=== PATIENT | male | born 1935 | race Caucasian/White ===

== ENCOUNTER 2022-11-28 11:21 | Emergency (ER) | payer MEDICARE, BC, SELFPAY ==
[2022-11-28 11:28] VITALS: BP 165/80; PULSE 82; RESP 19; TEMP 36.3; O2SAT 96; BMI 32.8
--- NOTE | 2022-11-28 11:35 | DI.RAD.S_ITS ---
PROCEDURE: XR HAND RT MIN 3V INDICATIONS: fall on thinners, swelling ecchymosis TECHNIQUE: 3 views of the hand(s) acquired. COMPARISON: None. FINDINGS: Bones: No fractures or dislocations. Carpal bones are normally aligned. No suspicious bony lesions. The bones are demineralized. Degenerative changes of the 2nd and 3rd metacarpophalangeal joints. Degenerative changes of the triscaphe joint. Soft tissues: No suspicious soft tissue calcifications. IMPRESSION: 1. No acute bony abnormality. 2. Degenerative changes. Dictated by: Gt Ulloa M.D. on 11/28/2022 at 11:39 Approved by: Gt Ulloa M.D. on 11/28/2022 at 11:41
--- NOTE | 2022-11-28 11:36 | DI.RAD.S_ITS ---
PROCEDURE: XR RIBS RT MIN 3V W CXR 1V INDICATIONS: injury to right ribs . on thinners. TECHNIQUE: 2 views of the right ribs were acquired, along with a single view chest. COMPARISON: None. FINDINGS: Surgical changes and devices: None. Bones and chest wall: No fractures or dislocations. No suspicious bony lesions. Overlying soft tissues appear unremarkable. Lungs and pleura: There is a small right pleural effusion. Mediastinum: Mediastinal contours appear normal. Heart size is enlarged. IMPRESSION: No rib fracture is identified, however visualization of the lower ribs is limited. Additionally right pleural effusion could be a hemothorax. Given history of trauma, recommend CT of the chest. Dictated by: Gt Ulloa M.D. on 11/28/2022 at 11:37 Approved by: Gt Ulloa M.D. on 11/28/2022 at 11:39
--- NOTE | 2022-11-28 11:39 | DI.CT.S_ITS ---
PROCEDURE: CT HEAD/BRAIN WO CON INDICATIONS: fall/hit head and wrists and chest TECHNIQUE: Noncontrast 4.5 mm thick angled axial sections acquired from the foramen magnum to the vertex, with coronal and sagittal reformats. For radiation dose reduction, the following was used: automated exposure control, adjustment of mA and/or kV according to patient size. COMPARISON: None. FINDINGS: Image quality: Excellent. CSF spaces: Basal cisterns are patent. No extra-axial fluid collections. The ventricles are symmetric in size and shape. Brain: No intracranial bleeds or masses. There is cerebral volume loss for age, with resultant ventricular and sulcal prominence. There are periventricular and deep white matter chronic small vessel ischemic changes. There is intracranial internal carotid artery atherosclerosis. Skull and face: Calvarium and visualized facial bones appear intact, without suspicious lesions. Sinuses: Visualized sinuses and mastoids are clear. IMPRESSION: No acute intracranial abnormality. Dictated by: Gt Ulloa M.D. on 11/28/2022 at 11:43 Approved by: Gt Ulloa M.D. on 11/28/2022 at 11:47
--- NOTE | 2022-11-28 11:39 | DI.CT.S_ITS ---
PROCEDURE: CT CERVICAL SPINE WO CON INDICATIONS: fall/hit head and wrists and chest TECHNIQUE: Noncontrast 3 mm thick sections acquired from the skull base to the T4 level. Sagittal and coronal reformats were then constructed. For radiation dose reduction, the following was used: automated exposure control, adjustment of mA and/or kV according to patient size. COMPARISON: None. FINDINGS: Image quality: Excellent. Bones: No fractures or dislocations. Visualized superior ribs are intact. Degenerative changes of the cervical spine. Soft tissues: Prevertebral soft tissues are normal in thickness. No paravertebral hematomas. No apical pneumothoraces. IMPRESSION: No acute traumatic abnormality of the cervical spine. Dictated by: Gt Ulloa M.D. on 11/28/2022 at 11:41 Approved by: Gt Ulloa M.D. on 11/28/2022 at 11:43
--- NOTE | 2022-11-28 12:26 | PC.NURSE ---
Pt states he fell as a result of trip/slip yesterday at [employer]. Immediately ambulatory after fall. Pt finished shopping, drove himself to errands and drove out to [place] to see family. Awoke this am with R-wrist and R-rib pain. Denies other complaints. Pt has new onset a-fib, started eloquis 5 days ago. Denies feeling lightheaded, dizzy prior to fall. Denies N/V/D. Denies SOB. AOx4.
[2022-11-28 12:32] VITALS: BP 122/85; PULSE 85; O2SAT 93
--- NOTE | 2022-11-28 12:39 | ED_ITS ---
HPI - Fall General Chief Complaint: Trauma Stated Complaint: Fall, hit R wrist/ribs Time Seen by Provider: 11/28/22 11:46 Source: patient Mode of arrival: Family Vehicle History of Present Illness HPI Narrative: Patient 67-year-old male with new diagnosis of atrial flutter started on Eliquis a few days ago presenting today after a mechanical trip and fall. He reports that he was at the grocery store yesterday tripped on the curb fell forward and on his right side. Mostly complaining of right hand and wrist pain. Did not hit his head or lose consciousness. He was able to get himself up continue his shopping he injured his glasses he went got his glasses fixed and then went home. This morning he woke up and his hand was more swollen and bruised. He denies any other injury he has been up and walking. No nausea vomiting no other injuries. Related Data Previous Rx's Medication Instructions Recorded hydrocodone 5 mg-acetaminophen 325 1 tab PO Q6H PRN pain #10 tabs 11/28/22 mg tablet Allergies Allergy/AdvReac Type Severity Reaction Status Date / Time acetaminophen [From Tylenol] AdvReac Weakness Verified 11/28/22 11:35 Patient History Social History Smoking Status: Former smoker Smoking Status: Former smoker tobacco type: cigarettes Substance Use Type: does not use Exam Initial Vital Signs Initial Vital Signs: Vital Signs Temperature 97.4 F L 11/28/22 11:28 Pulse Rate 82 11/28/22 11:28 Respiratory Rate 19 11/28/22 11:28 Blood Pressure 165/80 H 11/28/22 11:28 Pulse Oximetry 96 11/28/22 11:28 Oxygen Delivery Method Room Air 11/28/22 11:28 GENERAL: Alert 67-year-old male and in no acute distress. HEENT: Head atraumatic,EOMI, pupils reactive, face symmetric, moist mucous membranes NECK: No vertebral tenderness no step-offs CARDIOVASCULAR: Regular rate and rhythm without murmurs, rubs or gallops. RESPIRATORY: Breath sounds equal bilaterally, no wheezes rales or rhonchi. ABDOMEN: Soft, nontender. Normoactive bowel sounds all 4 quadrants. No guarding or rebound. EXTREMITIES: Normal range of motion, no clubbing or edema. Neurovascularly intact Right hand contusion able flex and extend all fingers actually is moving his wrist with flexion and extension no significant elbow pain to supinate and pronate. No other injury no clavicle NEUROLOGICAL: Alert and oriented x4. SKIN: Warm, dry, no laceration, no petechiae, no rashes or lesions. Contusion right hand Course Orders Ordered: ED Orders 11/28/22 11:35 XR hand RT min 3V Stat 11/28/22 11:36 XR ribs RT min 3V w CXR1V Stat 11/28/22 11:39 CT cervical spine wo con Stat CT head/brain wo con Stat Vital Signs Vital signs: Vital Signs - 8 hr 11/28/22 11:28 11/28/22 12:32 11/28/22 12:32 Temperature 97.4 F L Pulse Rate 82 85 Respiratory Rate 19 Blood Pressure 165/80 H 122/85 Pulse Oximetry 96 93 Oxygen Delivery Method Room Air 11/28/22 13:00 11/28/22 13:00 11/28/22 14:30 Temperature Pulse Rate 81 91 H Respiratory Rate 21 Blood Pressure 131/80 145/86 H Pulse Oximetry 91 92 Oxygen Delivery Method Room Air 11/28/22 13:30 11/28/22 13:30 Temperature Pulse Rate 78 Respiratory Rate Blood Pressure 144/85 H Pulse Oximetry 92 Oxygen Delivery Method MDM - Fall Imaging Data CT scan - head: Radiologist's Impression: PROCEDURE:? CT HEAD/BRAIN WO CON ? INDICATIONS:? fall/hit head and wrists and chest ? TECHNIQUE:? Noncontrast 4.5 mm thick angled axial sections acquired from the foramen magnum to the vertex, with coronal and sagittal reformats.? For radiation dose reduction, the following was used:? automated exposure control, adjustment of mA and/or kV according to patient size.? ? COMPARISON:? None. ? FINDINGS:? Image quality:? Excellent.? ? CSF spaces:? Basal cisterns are patent.? No extra-axial fluid collections.? The ventricles are symmetric in size and shape.? ? Brain:? No intracranial bleeds or masses.? There is cerebral volume loss for age, with resultant ventricular and sulcal prominence.? There are periventricular and deep white matter chronic small vessel ischemic changes.? There is intracranial internal carotid artery atherosclerosis.? ? Skull and face:? Calvarium and visualized facial bones appear intact, without suspicious lesions.? ? Sinuses:? Visualized sinuses and mastoids are clear.? ? IMPRESSION:? No acute intracranial abnormality. ? ? Dictated by: Gt Ulloa M.D. on 11/28/2022 at 11:43 ? ? CT - cervical spine: Radiologist's Impression: PROCEDURE:? CT CERVICAL SPINE WO CON ? INDICATIONS:? fall/hit head and wrists and chest ? TECHNIQUE:? Noncontrast 3 mm thick sections acquired from the skull base to the T4 level.? Sagittal and coronal reformats were then constructed.? For radiation dose reduction, the following was used:? automated exposure control, adjustment of mA and/or kV according to patient size.? ? COMPARISON:? None. ? FINDINGS:? Image quality:? Excellent.? ? Bones:? No fractures or dislocations.? Visualized superior ribs are intact.? Degenerative changes of the cervical spine. ? Soft tissues:? Prevertebral soft tissues are normal in thickness.? No paravertebral hematomas.? No apical pneumothoraces.? ? ? IMPRESSION:? No acute traumatic abnormality of the cervical spine. ? Dictated by: Gt Ulloa M.D. on 11/28/2022 at 11:41 ? ? Chest x-ray: Radiologist's Impression: PROCEDURE:? XR RIBS RT MIN 3V W CXR 1V ? INDICATIONS:? injury to right ribs . on thinners. ? TECHNIQUE:? 2 views of the right ribs were acquired, along with a single view chest.? ? COMPARISON:? None. ? FINDINGS:? ? Surgical changes and devices:? None.? ? Bones and chest wall:? No fractures or dislocations.? No suspicious bony lesions.? Overlying soft tissues appear unremarkable.? ? Lungs and pleura:? There is a small right pleural effusion. ? Mediastinum:? Mediastinal contours appear normal.? Heart size is enlarged.? ? IMPRESSION:? No rib fracture is identified, however visualization of the lower ribs is limited.? Additionally right pleural effusion could be a hemothorax.? Given history of trauma, recommend CT of the chest. ? ? Dictated by: Gt Ulloa M.D. on 11/28/2022 at 11:37 ? ? Approved by: Gt Ulloa M.D. on 11/28/2022 at 11:39 ? Extremity x-ray #1: Radiologist's Impression: PROCEDURE:? XR HAND RT MIN 3V ? INDICATIONS:? fall on thinners, swelling ecchymosis ? TECHNIQUE:? 3 views of the hand(s) acquired.? ? COMPARISON:? None. ? FINDINGS:? ? Bones:? No fractures or dislocations.? Carpal bones are normally aligned.? No suspicious bony lesions.? The bones are demineralized.? Degenerative changes of the 2nd and 3rd metacarpophalangeal joints.? Degenerative changes of the triscaphe joint. ? Soft tissues:? No suspicious soft tissue calcifications.? ? ? IMPRESSION:? 1. No acute bony abnormality. 2. Degenerative changes.? ? ? Dictated by: Gt Ulloa M.D. on 11/28/2022 at 11:39 ? ? Approved by: Gt Ulloa M.D. on 11/28/2022 at 11:41 ? MDM Narrative Medical decision making narrative: Patient 87-year-old male history of atrial fibrillation recently started on Eliquis presents today after a mechanical fall yesterday. X-rays and images are negative for any fracture intracranial hemorrhage. He can not take ibuprofen secondary to Eliquis and increase risk of bleeding. He reports that he has a rash or an allergic reaction to Tylenol so he does not take that. He actually does not need anything for pain at this time. Daughter in the room reports that she is noted his O2 sat to drop into the high 80s. Ambulation trial with pulse oximeter shows O2 drops to 90% he becomes conversational dyspneic. Upon further questioning with both patient and daughter they both report that he does have a little bit of dyspnea with conversation and with exertion that is not new. He has had an outpatient echocardiogram last week he has an appointment with a primary next week appointment with Cardiology not until February. We discussed possible need for blood work and further evaluation. However at this time patient would like to go home. He really is not a great candidate for any sort of pain medication he is not having pain at this time encouraged elevation and ice as needed. Also encouraged that if his breathing should return or get any worse than he needs to return to the ED. Encouraged them to buy a pulse oximeter and monitor at home. Chest x-ray does not show any fracture but questionable small pleural effusion questionable hemothorax. I do not appreciate a large effusion and his lung sounds are clear bilaterally. Although it is possible he has some pulmonary contusion versus congestive heart failure. I would suspect due to the chronicity of his shortness of breath that he may have some fluid retention. Sounds as though he has good outpatient follow-up. Discharge Plan Departure Patient Disposition: Home Clinical Impression: Contusion of hand, right Instructions: DI for Contusion Activity Restrictions/Additional Instructions: *You have been diagnosed with right hand contusion *What to do: At this time please monitor breathing. If your breathing should get worse or your oxygen level below 90% than you are strongly encouraged to return to the emergency department *Continue to take medications as directed Tylenol 650 mg every 4-6 hours if needed for [id number] pain Avoid ibuprofen with Eliquis this can increase stating [place] 1 tablet every 6 hours if needed for severe pain (break in half 1st 1-2 times to see how you tolerated)--> SENT TO [facility] *Follow up with your primary care provider in 2-3 days or call [phone] *Return to ER if you should have increasing shortness of breath, increase in pain falling or any new, worsening or concerning symptoms CONTROLLED SUBSTANCE DISCHARGE (Narcotoic/benzodiazepine/Flexeril/Phenergan) 1. You have been prescribed narcotic medications, it does have acetaminophen/Tylenol/paracetamol in it, DO NOT TAKE MORE THAN 4,00mg in 24 hours of Tylenol. TRAMADOL DOES NOT CONTAIN TYLENOL 2. Please understand that we cannot provide further refills of narcotics, benzodiazepines or controlled substances through the ED and her pain management will need to be through your provider. 3. While on these medications you cannot drive or operate heavy machinery. 4. You cannot sign legal documents or perform any duties such as this. 5. As long as you're taking opiate pain medications he should also be taking a stool softener such as Colace, Dulcolax, MiraLAX or prune juice, to help avoid constipation. Prescriptions: New hydrocodone-acetaminophen 5-325 mg tablet 1 tab PO Q6H PRN (Reason: pain) Qty: 10 0RF Stand Alone Forms: Patient Portal/API
[2022-11-28 13:00] VITALS: BP 131/80; PULSE 81; O2SAT 91
[2022-11-28 13:30] VITALS: BP 144/85; PULSE 78; O2SAT 92
[2022-11-28 14:30] VITALS: BP 145/86; PULSE 91; RESP 21; O2SAT 92
== END 2022-11-28 14:43 | disposition home or self-care (01) ==
PROVIDERS: Emergency Provider Emergency Medicine
DX: S60.221A Contusion of right hand, initial encounter (principal); S29.9XXA Unspecified injury of thorax, initial encounter; S09.90XA Unspecified injury of head, initial encounter; W01.0XXA Fall on same level from slipping, tripping and stumbling without subsequent striking against object, initial encounter; Z79.01 Long term (current) use of anticoagulants
CPT/HCPCS: 70450; 71101; 72125; 73130; 99284

== ENCOUNTER 2023-06-17 01:59 | Emergency (ER) | payer MEDICARE, BC, SELFPAY ==
[2023-06-17] VITALS (244 sets, daily range): BP systolic 68–218; BP diastolic 37–157; PULSE 66–104; RESP 16–43; TEMP 36–36.5; O2SAT 84–100; BMI 29.7
[2023-06-17] MEDS: ONDANSETRON 4 MG/2 ML INJ IV (02:14)
[2023-06-17] MEDS: PANTOPRAZOLE 40 MG VIAL IV (02:14)
[2023-06-17 02:15] LABS: Add Manual Diff / Slide Review NO; Basophils Absolute Auto 100 /uL (0-100); Basophils Percent Auto 0.2 % (0-2); Eosinophils Absolute Auto 0 /uL (0-450); Hematocrit 41.4 % (41-53); Hemoglobin 13.6 g/dL (13.5-17.5); Lymphocytes Absolute Auto 700 /uL (1100-4500); Lymphocytes Percent Auto 3.1 % (25-40); Mean Corpuscular HGB Conc 32.8 % (30-36); Mean Corpuscular Volume 94.7 fL (80-100); Monocytes Absolute Auto 1600 /uL (0-900); Monocytes Percent Auto 6.9 % (3-14); Neutrophils Absolute Auto 20400 /uL (1500-7000); Neutrophils Percent Auto 89.8 % (50-75); Platelet Count 262 X10^3/uL (150-400); Red Blood Cell Count 4.37 X10^6/uL (4.5-5.9); Red Cell Distribution Width 16.3 % (11.6-14.8); White Blood Cell Count 22.7 X10^3/uL (4.5-11.0)
[2023-06-17] MEDS: SODIUM CHLORIDE 0.9% 500 ML 1000 ML IV (02:19)
[2023-06-17 02:25] LABS: D Dimer 541 ng/ml (<500)
[2023-06-17 02:29] LABS: Alanine Aminotransferase 17 IU/L (<50); Albumin 3.8 g/dL (3.5-5.0); Albumin Globulin Ratio 1.2 (1.0-2.8); Alkaline Phosphatase 49 U/L (38-126); Aspartate Aminotransferase 19 IU/L (17-59); Bilirubin Total 0.5 mg/dL (0.2-1.3); Calcium 10.8 mg/dL (8.4-10.2); Chloride 106 mmol/L (98-107); Estimated Glomerular Filt Rate 5 mL/min (>60); Globulin 3.1 g/dL (1.7-4.1); Glucose 128 mg/dL (80-110); Lactate (Lactic Acid) 1.4 mmol/L (0.7-2.1); Lipase 234 U/L (23-300); Magnesium 2.8 mg/dL (1.6-2.3); Sodium 136 mmol/L (137-145); Total Protein 6.9 g/dL (6.3-8.2)
[2023-06-17 02:36] LABS: HEMOLYSIS 27 (0-50)
[2023-06-17 02:42] LABS: BUN Creatinine Ratio 16.8 (6-22); Potassium 6.2 mmol/L (3.4-5.1)
[2023-06-17 02:43] LABS: Blood Urea Nitrogen 155 mg/dL (9-20)
[2023-06-17 02:44] LABS: Carbon Dioxide 9 mmol/L (22-32)
--- NOTE | 2023-06-17 02:51 | ED_ITS ---
HPI - Weakness <DO Burton Tomas Last Filed: 06/19/23 10:44> General Chief complaint: Weakness Stated complaint: Nausea and vomiting Time Seen by Provider: 06/17/23 02:00 Source: patient and EMS Mode of arrival: EMS History of Present Illness HPI Narrative: 87-year-old male with known COVID presents by EMS from [facility] for evaluation nausea, vomiting and cough for the past few days. He was tested for COVID on Wednesday and found to be positive. He has a very poor appetite and has had little to eat or drink over the past few days. He denies any chest pain or shortness of breath. He denies any abdominal pain. He feels generally quite unwell and is very weak. On arrival EMS found his blood pressure to be in the 70s initially, an IV was placed and he was given a small fluid bolus EN route and on arrival blood pressure was in the 110s. Related Data Previous Rx's Medication Instructions Recorded hydrocodone 5 mg-acetaminophen 325 1 tab PO Q6H PRN pain #10 tabs 11/28/22 mg tablet Allergies Allergy/AdvReac Type Severity Reaction Status Date / Time acetaminophen [From Tylenol] AdvReac Weakness Verified 11/28/22 11:35 Review of Systems <DO Burton Tomas Last Filed: 06/19/23 10:44> Review of Systems Narrative: GENERAL: See HPI HEENT: Denies sinus pain, ear pain, sore throat, difficulty swallowing, dizziness. RESPIRATORY: See HPI CARDIOVASCULAR: Denies chest pain, palpitations, orthopnea, edema, GASTROINTESTINAL: See HPI : Denies dysuria, frequency, incontinence, hematuria, urinary retention. MUSCULOSKELETAL: denies weakness, joint pain, or bony pain SKIN: Denies rash, skin lesions, or other NEUROLOGIC: Denies weakness, headache, numbness, change in speech, confusion, seizures, incoordination. PSYCHIATRIC: No concerning psychosocial issues. 12 point review of systems is negative except for those stated above Patient History <DO Burton Tomas Last Filed: 06/19/23 10:44> Social History Smoking Status: Former smoker Smoking Status: Former smoker tobacco type: cigarettes Substance Use Type: does not use Exam <DO Burton Tomas Last Filed: 06/19/23 10:44> Narrative Exam Narrative: GENERAL: [87] year old patient appears stated age. Well-developed patient, in mild distress. HEAD: Atraumatic. Normocephalic. EYES: Pupils equal round and reactive. Extraocular motions intact. No scleral icterus. No injection or drainage. ENT:Dry mucus membranes Nose without bleeding, purulent drainage. Throat without erythema, tonsillar hypertrophy or exudate. Airway patent. NECK: Trachea midline. Non tender CARDIOVASCULAR: Regular rate and rhythm without murmurs, gallops, or rubs. RESPIRATORY: Clear to auscultation. Breath sounds equal bilaterally. No wheezes, rales, or rhonchi. GASTROINTESTINAL: Abdomen soft, non-tender, nondistended. EXTREMITIES: No edema or joint tenderness. BACK: Nontender without deformity or crepitance. No flank tenderness. NEURO: AOx3. SKIN: Poor skin turgor No rash or erythema of visible areas Initial Vital Signs Initial Vital Signs: Vital Signs Pulse Rate 70 06/17/23 01:59 Pulse Oximetry 98 06/17/23 01:59 <Rebecca Overton DO - Last Filed: 06/20/23 00:29> Initial Vital Signs Initial Vital Signs: Vital Signs Pulse Rate 70 06/17/23 01:59 Pulse Oximetry 98 06/17/23 01:59 Course <Ramone Brown DO - Last Filed: 06/19/23 10:44> Orders Ordered: Discontinued Medications Furosemide (Furosemide 40 Mg/4 Ml Vial) 40 mg IV NOW ONE Stop: 06/17/23 03:21 Last Admin: 06/17/23 03:31 Dose: 40 mg Documented By: DENISE Sodium Chloride (Normal Saline 0.9%) 500 mls @ 1,000 mls/hr IV BOLUS ONE Stop: 06/17/23 02:34 Last Infusion: 06/17/23 02:37 Dose: Infused Documented By: Admin: 06/17/23 02:19 Dose: 1,000 mls/hr Documented By: KATIE Dextrose (D10w) 100 mls @ 1,200 mls/hr IV PRN PRN PRN Reason: Hypoglycemia Last Infusion: 06/17/23 03:59 Dose: Infused Documented By: Admin: 06/17/23 03:32 Dose: 1,200 mls/hr Documented By: DENISE Ceftriaxone Sodium 1,000 mg/ (Sodium Chloride) 100 mls @ 200 mls/hr IV NOW ONE Stop: 06/17/23 03:33 Last Infusion: 06/17/23 03:59 Dose: Infused Documented By: Admin: 06/17/23 03:40 Dose: 200 mls/hr Documented By: KATIE Sodium Chloride (Normal Saline 0.9%) 1,000 mls @ 1,000 mls/hr IV BOLUS ONE Stop: 06/17/23 04:35 Last Infusion: 06/17/23 04:51 Dose: Infused Documented By: Admin: 06/17/23 03:51 Dose: 1,000 mls/hr Documented By: KATIE NOREPINEPHRINE BITARTRATE/D5W (Levophed) 4 mg in 250 mls @ 32.25 mls/hr IV TITRATE TI; Protocol Last Titration: 06/17/23 21:01 Dose: 0.03 mcg/kg/min, 11.2 mls/hr Documented By: Titration: 06/17/23 20:06 Dose: 0.04 mcg/kg/min, 13.1 mls/hr Documented By: Titration: 06/17/23 18:22 Dose: 0.05 mcg/kg/min, 15.5 mls/hr Documented By: Admin: 06/17/23 14:50 Dose: 0.1 mcg/kg/min, 32.25 mls/hr Documented By: Titration: 06/17/23 14:50 Dose: Infused Documented By: Titration: 06/17/23 11:15 Dose: 0.1 mcg/kg/min, 32.25 mls/hr Documented By: Titration: 06/17/23 11:01 Dose: 0 mcg/kg/min, 0 mls/hr Documented By: Admin: 06/17/23 06:52 Dose: 0.1 mcg/kg/min, 32.25 mls/hr Documented By: KATIE Sodium Bicarbonate 150 meq/ (Dextrose) 1,150 mls @ 150 mls/hr IV CONT TI Last Admin: 06/17/23 15:01 Dose: 150 mls/hr Documented By: Infusion: 06/17/23 14:41 Dose: Infused Documented By: Admin: 06/17/23 07:00 Dose: 150 mls/hr Documented By: KATIE Insulin Human Regular (Insulin Regular 100 Unit/Ml 3 Ml Vial) 5 unit IV NOW ONE Stop: 06/17/23 03:21 Last Admin: 06/17/23 03:30 Dose: 5 unit Documented By: DENISE Co-signed By: KATIE Lidocaine HCl (Lidocaine 2% (Glydo) 6 Ml Gel) 6 ml TOP NOW ONE Stop: 06/17/23 03:07 Last Admin: 06/17/23 03:17 Dose: 6 ml Documented By: KATIE Ondansetron HCl (Ondansetron 4 Mg/2 Ml Inj) 4 mg IV NOW ONE Stop: 06/17/23 02:06 Last Admin: 06/17/23 02:14 Dose: 4 mg Documented By: KATIE Pantoprazole Sodium (Pantoprazole 40 Mg Vial) 40 mg IV NOW ONE Stop: 06/17/23 02:06 Last Admin: 06/17/23 02:14 Dose: 40 mg Documented By: KATIE Vital Signs Vital signs: Vital Signs - 8 hr 06/17/23 11:40 06/17/23 11:40 06/17/23 11:45 Pulse Rate 81 Respiratory Rate 22 Blood Pressure 108/50 L 84/59 L Pulse Oximetry 96 06/17/23 11:45 06/17/23 11:50 06/17/23 11:50 Pulse Rate 80 79 Respiratory Rate 20 21 Blood Pressure 98/55 L Pulse Oximetry 96 96 06/17/23 11:55 06/17/23 11:55 06/17/23 12:00 Pulse Rate 78 92 H Respiratory Rate 24 32 H Blood Pressure 99/55 L Pulse Oximetry 97 97 06/17/23 12:05 06/17/23 12:05 06/17/23 12:10 Pulse Rate 86 83 Respiratory Rate 25 H 25 H Blood Pressure 122/53 L Pulse Oximetry 06/17/23 12:11 06/17/23 12:11 06/17/23 12:15 Pulse Rate 88 81 Respiratory Rate 26 H 29 H Blood Pressure 80/48 L Pulse Oximetry 06/17/23 12:15 06/17/23 12:20 06/17/23 12:20 Pulse Rate 82 Respiratory Rate 23 Blood Pressure 108/50 L 105/56 L Pulse Oximetry 06/17/23 12:25 06/17/23 12:25 06/17/23 12:30 Pulse Rate 83 85 Respiratory Rate 23 22 Blood Pressure 112/60 Pulse Oximetry 06/17/23 12:31 06/17/23 12:31 06/17/23 12:35 Pulse Rate 84 Respiratory Rate 23 Blood Pressure 146/59 H 91/52 L Pulse Oximetry 06/17/23 12:35 06/17/23 12:40 06/17/23 12:40 Pulse Rate 83 85 Respiratory Rate 21 23 Blood Pressure 109/47 L Pulse Oximetry 06/17/23 12:45 06/17/23 12:45 06/17/23 12:50 Pulse Rate 81 100 H Respiratory Rate 21 Blood Pressure 108/52 L Pulse Oximetry 06/17/23 12:52 06/17/23 12:52 06/17/23 12:55 Pulse Rate 86 83 Respiratory Rate 24 20 Blood Pressure 106/55 L Pulse Oximetry 06/17/23 12:55 06/17/23 13:00 06/17/23 13:00 Pulse Rate 80 Respiratory Rate 20 Blood Pressure 107/54 L 113/54 L Pulse Oximetry 06/17/23 13:05 06/17/23 13:05 06/17/23 13:10 Pulse Rate 84 Respiratory Rate 19 Blood Pressure 104/52 L 111/53 L Pulse Oximetry 06/17/23 13:10 06/17/23 13:15 06/17/23 13:15 Pulse Rate 81 82 Respiratory Rate 20 23 Blood Pressure 118/56 L Pulse Oximetry 06/17/23 13:20 06/17/23 13:21 06/17/23 13:21 Pulse Rate 84 85 Respiratory Rate 22 21 Blood Pressure 148/60 H Pulse Oximetry 06/17/23 13:25 06/17/23 13:25 06/17/23 13:30 Pulse Rate 83 Respiratory Rate 21 Blood Pressure 122/75 94/58 L Pulse Oximetry 06/17/23 13:30 06/17/23 13:35 06/17/23 13:35 Pulse Rate 87 86 Respiratory Rate 29 H 24 Blood Pressure 97/51 L Pulse Oximetry 06/17/23 13:40 06/17/23 13:40 06/17/23 13:45 Pulse Rate 84 Respiratory Rate 29 H Blood Pressure 106/53 L 102/52 L Pulse Oximetry 06/17/23 13:45 06/17/23 13:50 06/17/23 13:51 Pulse Rate 85 85 Respiratory Rate 25 H 22 Blood Pressure 125/56 L Pulse Oximetry 06/17/23 13:51 06/17/23 13:55 06/17/23 13:55 Pulse Rate 83 83 Respiratory Rate 22 22 Blood Pressure 114/52 L Pulse Oximetry 06/17/23 14:00 06/17/23 14:00 06/17/23 14:05 Pulse Rate 86 Respiratory Rate 28 H Blood Pressure 120/70 118/57 L Pulse Oximetry 06/17/23 14:05 06/17/23 14:10 06/17/23 14:10 Pulse Rate 91 H 84 Respiratory Rate 26 H 23 Blood Pressure 117/57 L Pulse Oximetry 06/17/23 14:15 06/17/23 14:15 06/17/23 14:20 Pulse Rate 83 85 Respiratory Rate 23 23 Blood Pressure 104/56 L Pulse Oximetry 06/17/23 14:20 06/17/23 14:25 06/17/23 14:25 Pulse Rate 84 Respiratory Rate 21 Blood Pressure 107/54 L 102/52 L Pulse Oximetry 06/17/23 14:30 06/17/23 14:30 06/17/23 14:35 Pulse Rate 82 Respiratory Rate 20 Blood Pressure 110/51 L 102/54 L Pulse Oximetry 06/17/23 14:35 06/17/23 14:40 06/17/23 14:40 Pulse Rate 82 82 Respiratory Rate 20 17 Blood Pressure 104/52 L Pulse Oximetry 06/17/23 14:45 06/17/23 14:45 06/17/23 14:50 Pulse Rate 81 80 Respiratory Rate 16 20 Blood Pressure 107/53 L Pulse Oximetry 06/17/23 14:50 06/17/23 14:55 06/17/23 14:55 Pulse Rate 80 Respiratory Rate 20 Blood Pressure 109/55 L 101/54 L Pulse Oximetry 06/17/23 15:00 06/17/23 15:00 06/17/23 15:05 Pulse Rate 81 Respiratory Rate 21 Blood Pressure 100/55 L 103/52 L Pulse Oximetry 06/17/23 15:05 06/17/23 15:10 06/17/23 15:10 Pulse Rate 82 82 Respiratory Rate 17 18 Blood Pressure 97/49 L Pulse Oximetry 06/17/23 15:15 06/17/23 15:15 06/17/23 15:20 Pulse Rate 81 Respiratory Rate 18 Blood Pressure 99/53 L 95/53 L Pulse Oximetry 06/17/23 15:20 06/17/23 15:25 06/17/23 15:25 Pulse Rate 81 81 Respiratory Rate 22 18 Blood Pressure 98/54 L Pulse Oximetry 06/17/23 15:30 06/17/23 15:30 06/17/23 15:35 Pulse Rate 82 Respiratory Rate 18 Blood Pressure 106/55 L 109/54 L Pulse Oximetry 06/17/23 15:35 06/17/23 15:40 06/17/23 15:40 Pulse Rate 83 81 Respiratory Rate 18 18 Blood Pressure 107/54 L Pulse Oximetry 06/17/23 15:45 06/17/23 15:45 06/17/23 15:50 Pulse Rate 80 Respiratory Rate 19 Blood Pressure 147/100 H 109/53 L Pulse Oximetry 06/17/23 15:50 06/17/23 15:55 06/17/23 15:55 Pulse Rate 82 82 Respiratory Rate 18 18 Blood Pressure 112/55 L Pulse Oximetry 06/17/23 16:00 06/17/23 16:00 06/17/23 16:05 Pulse Rate 82 Respiratory Rate 19 Blood Pressure 104/55 L 101/50 L Pulse Oximetry 06/17/23 16:05 06/17/23 16:10 06/17/23 16:10 Pulse Rate 82 82 Respiratory Rate 19 21 Blood Pressure 112/59 L Pulse Oximetry 06/17/23 16:15 06/17/23 16:15 06/17/23 16:20 Pulse Rate 82 Respiratory Rate 22 Blood Pressure 109/59 L 112/56 L Pulse Oximetry 06/17/23 16:20 06/17/23 16:25 06/17/23 16:25 Pulse Rate 79 82 Respiratory Rate 19 17 Blood Pressure 123/57 L Pulse Oximetry 06/17/23 16:30 06/17/23 16:30 06/17/23 16:35 Pulse Rate 81 83 Respiratory Rate 16 30 H Blood Pressure 117/55 L Pulse Oximetry 06/17/23 16:40 06/17/23 16:40 06/17/23 16:45 Pulse Rate 82 81 Respiratory Rate Blood Pressure 135/93 H Pulse Oximetry 06/17/23 16:46 06/17/23 16:46 06/17/23 16:50 Pulse Rate 81 Respiratory Rate 24 Blood Pressure 143/61 H 115/59 L Pulse Oximetry 06/17/23 16:50 06/17/23 16:55 06/17/23 16:55 Pulse Rate 84 84 Respiratory Rate 24 21 Blood Pressure 130/54 L Pulse Oximetry 06/17/23 17:00 06/17/23 17:00 06/17/23 17:05 Pulse Rate 82 Respiratory Rate 20 Blood Pressure 115/55 L 115/58 L Pulse Oximetry 06/17/23 17:05 06/17/23 17:10 06/17/23 17:10 Pulse Rate 82 80 Respiratory Rate 20 19 Blood Pressure 115/57 L Pulse Oximetry 95 06/17/23 17:15 06/17/23 17:15 06/17/23 17:20 Pulse Rate 82 Respiratory Rate Blood Pressure 117/59 L 126/82 Pulse Oximetry 97 06/17/23 17:20 06/17/23 17:25 06/17/23 17:25 Pulse Rate 83 82 Respiratory Rate 21 18 Blood Pressure 118/57 L Pulse Oximetry 96 96 06/17/23 17:30 06/17/23 17:30 06/17/23 17:35 Pulse Rate 83 83 Respiratory Rate 19 18 Blood Pressure 117/59 L Pulse Oximetry 96 97 06/17/23 17:35 06/17/23 17:40 06/17/23 17:40 Pulse Rate 82 Respiratory Rate 17 Blood Pressure 121/57 L 119/57 L Pulse Oximetry 97 06/17/23 17:45 06/17/23 17:45 06/17/23 17:50 Pulse Rate 81 83 Respiratory Rate 16 25 H Blood Pressure 115/57 L Pulse Oximetry 97 96 06/17/23 17:50 06/17/23 17:55 06/17/23 17:55 Pulse Rate 83 Respiratory Rate 23 Blood Pressure 123/58 L 119/58 L Pulse Oximetry 95 06/17/23 18:00 06/17/23 18:00 06/17/23 18:05 Pulse Rate 81 Respiratory Rate 20 Blood Pressure 120/56 L 119/56 L Pulse Oximetry 95 06/17/23 18:05 06/17/23 18:10 06/17/23 18:10 Pulse Rate 82 83 Respiratory Rate 20 20 Blood Pressure 116/57 L Pulse Oximetry 94 95 06/17/23 18:15 06/17/23 18:15 06/17/23 18:20 Pulse Rate 84 82 Respiratory Rate 19 19 Blood Pressure 119/58 L Pulse Oximetry 95 94 06/17/23 18:20 06/17/23 18:25 06/17/23 18:25 Pulse Rate 85 Respiratory Rate 21 Blood Pressure 122/60 122/61 Pulse Oximetry 95 06/17/23 18:30 06/17/23 18:30 06/17/23 18:35 Pulse Rate 84 Respiratory Rate 20 Blood Pressure 117/56 L 115/58 L Pulse Oximetry 94 06/17/23 18:35 06/17/23 18:40 06/17/23 18:40 Pulse Rate 86 85 Respiratory Rate 18 17 Blood Pressure 113/56 L Pulse Oximetry 95 96 06/17/23 18:45 06/17/23 18:45 06/17/23 18:50 Pulse Rate 82 Respiratory Rate 16 Blood Pressure 119/58 L 119/57 L Pulse Oximetry 95 06/17/23 18:50 06/17/23 18:55 06/17/23 18:55 Pulse Rate 84 86 Respiratory Rate 18 22 Blood Pressure 107/52 L Pulse Oximetry 95 95 06/17/23 19:00 06/17/23 19:00 06/17/23 19:05 Pulse Rate 85 84 Respiratory Rate 21 21 Blood Pressure 108/52 L Pulse Oximetry 94 95 06/17/23 19:05 06/17/23 19:10 06/17/23 19:10 Pulse Rate 84 Respiratory Rate 19 Blood Pressure 108/55 L 115/56 L Pulse Oximetry 94 <Rebecca Overton, - Last Filed: 06/20/23 00:29> Orders Ordered: Discontinued Medications Furosemide (Furosemide 40 Mg/4 Ml Vial) 40 mg IV NOW ONE Stop: 06/17/23 03:21 Last Admin: 06/17/23 03:31 Dose: 40 mg Documented By: DENISE Sodium Chloride (Normal Saline 0.9%) 500 mls @ 1,000 mls/hr IV BOLUS ONE Stop: 06/17/23 02:34 Last Infusion: 06/17/23 02:37 Dose: Infused Documented By: Admin: 06/17/23 02:19 Dose: 1,000 mls/hr Documented By: KATIE Dextrose (D10w) 100 mls @ 1,200 mls/hr IV PRN PRN PRN Reason: Hypoglycemia Last Infusion: 06/17/23 03:59 Dose: Infused Documented By: Admin: 06/17/23 03:32 Dose: 1,200 mls/hr Documented By: DENISE Ceftriaxone Sodium 1,000 mg/ (Sodium Chloride) 100 mls @ 200 mls/hr IV NOW ONE Stop: 06/17/23 03:33 Last Infusion: 06/17/23 03:59 Dose: Infused Documented By: Admin: 06/17/23 03:40 Dose: 200 mls/hr Documented By: BB Sodium Chloride (Normal Saline 0.9%) 1,000 mls @ 1,000 mls/hr IV BOLUS ONE Stop: 06/17/23 04:35 Last Infusion: 06/17/23 04:51 Dose: Infused Documented By: Admin: 06/17/23 03:51 Dose: 1,000 mls/hr Documented By: KATIE NOREPINEPHRINE BITARTRATE/D5W (Levophed) 4 mg in 250 mls @ 32.25 mls/hr IV TITRATE TI; Protocol Last Titration: 06/17/23 21:01 Dose: 0.03 mcg/kg/min, 11.2 mls/hr Documented By: Titration: 06/17/23 20:06 Dose: 0.04 mcg/kg/min, 13.1 mls/hr Documented By: Titration: 06/17/23 18:22 Dose: 0.05 mcg/kg/min, 15.5 mls/hr Documented By: Admin: 06/17/23 14:50 Dose: 0.1 mcg/kg/min, 32.25 mls/hr Documented By: Titration: 06/17/23 14:50 Dose: Infused Documented By: Titration: 06/17/23 11:15 Dose: 0.1 mcg/kg/min, 32.25 mls/hr Documented By: Titration: 06/17/23 11:01 Dose: 0 mcg/kg/min, 0 mls/hr Documented By: Admin: 06/17/23 06:52 Dose: 0.1 mcg/kg/min, 32.25 mls/hr Documented By: KATIE Sodium Bicarbonate 150 meq/ (Dextrose) 1,150 mls @ 150 mls/hr IV CONT TI Last Admin: 06/17/23 15:01 Dose: 150 mls/hr Documented By: Infusion: 06/17/23 14:41 Dose: Infused Documented By: Admin: 06/17/23 07:00 Dose: 150 mls/hr Documented By: KATIE Insulin Human Regular (Insulin Regular 100 Unit/Ml 3 Ml Vial) 5 unit IV NOW ONE Stop: 06/17/23 03:21 Last Admin: 06/17/23 03:30 Dose: 5 unit Documented By: DENISE Co-signed By: KATIE Lidocaine HCl (Lidocaine 2% (Glydo) 6 Ml Gel) 6 ml TOP NOW ONE Stop: 06/17/23 03:07 Last Admin: 06/17/23 03:17 Dose: 6 ml Documented By: KATIE Ondansetron HCl (Ondansetron 4 Mg/2 Ml Inj) 4 mg IV NOW ONE Stop: 06/17/23 02:06 Last Admin: 06/17/23 02:14 Dose: 4 mg Documented By: KATIE Pantoprazole Sodium (Pantoprazole 40 Mg Vial) 40 mg IV NOW ONE Stop: 06/17/23 02:06 Last Admin: 06/17/23 02:14 Dose: 40 mg Documented By: KATIE Vital Signs Vital signs: Vital Signs - 8 hr 06/17/23 11:40 06/17/23 11:40 06/17/23 11:45 Pulse Rate 81 Respiratory Rate 22 Blood Pressure 108/50 L 84/59 L Pulse Oximetry 96 06/17/23 11:45 06/17/23 11:50 06/17/23 11:50 Pulse Rate 80 79 Respiratory Rate 20 21 Blood Pressure 98/55 L Pulse Oximetry 96 96 06/17/23 11:55 06/17/23 11:55 06/17/23 12:00 Pulse Rate 78 92 H Respiratory Rate 24 32 H Blood Pressure 99/55 L Pulse Oximetry 97 97 06/17/23 12:05 06/17/23 12:05 06/17/23 12:10 Pulse Rate 86 83 Respiratory Rate 25 H 25 H Blood Pressure 122/53 L Pulse Oximetry 06/17/23 12:11 06/17/23 12:11 06/17/23 12:15 Pulse Rate 88 81 Respiratory Rate 26 H 29 H Blood Pressure 80/48 L Pulse Oximetry 06/17/23 12:15 06/17/23 12:20 06/17/23 12:20 Pulse Rate 82 Respiratory Rate 23 Blood Pressure 108/50 L 105/56 L Pulse Oximetry 06/17/23 12:25 06/17/23 12:25 06/17/23 12:30 Pulse Rate 83 85 Respiratory Rate 23 22 Blood Pressure 112/60 Pulse Oximetry 06/17/23 12:31 06/17/23 12:31 06/17/23 12:35 Pulse Rate 84 Respiratory Rate 23 Blood Pressure 146/59 H 91/52 L Pulse Oximetry 06/17/23 12:35 06/17/23 12:40 06/17/23 12:40 Pulse Rate 83 85 Respiratory Rate 21 23 Blood Pressure 109/47 L Pulse Oximetry 06/17/23 12:45 06/17/23 12:45 06/17/23 12:50 Pulse Rate 81 100 H Respiratory Rate 21 Blood Pressure 108/52 L Pulse Oximetry 06/17/23 12:52 06/17/23 12:52 06/17/23 12:55 Pulse Rate 86 83 Respiratory Rate 24 20 Blood Pressure 106/55 L Pulse Oximetry 06/17/23 12:55 06/17/23 13:00 06/17/23 13:00 Pulse Rate 80 Respiratory Rate 20 Blood Pressure 107/54 L 113/54 L Pulse Oximetry 06/17/23 13:05 06/17/23 13:05 06/17/23 13:10 Pulse Rate 84 Respiratory Rate 19 Blood Pressure 104/52 L 111/53 L Pulse Oximetry 06/17/23 13:10 06/17/23 13:15 06/17/23 13:15 Pulse Rate 81 82 Respiratory Rate 20 23 Blood Pressure 118/56 L Pulse Oximetry 06/17/23 13:20 06/17/23 13:21 06/17/23 13:21 Pulse Rate 84 85 Respiratory Rate 22 21 Blood Pressure 148/60 H Pulse Oximetry 06/17/23 13:25 06/17/23 13:25 06/17/23 13:30 Pulse Rate 83 Respiratory Rate 21 Blood Pressure 122/75 94/58 L Pulse Oximetry 06/17/23 13:30 06/17/23 13:35 06/17/23 13:35 Pulse Rate 87 86 Respiratory Rate 29 H 24 Blood Pressure 97/51 L Pulse Oximetry 06/17/23 13:40 06/17/23 13:40 06/17/23 13:45 Pulse Rate 84 Respiratory Rate 29 H Blood Pressure 106/53 L 102/52 L Pulse Oximetry 06/17/23 13:45 06/17/23 13:50 06/17/23 13:51 Pulse Rate 85 85 Respiratory Rate 25 H 22 Blood Pressure 125/56 L Pulse Oximetry 06/17/23 13:51 06/17/23 13:55 06/17/23 13:55 Pulse Rate 83 83 Respiratory Rate 22 22 Blood Pressure 114/52 L Pulse Oximetry 06/17/23 14:00 06/17/23 14:00 06/17/23 14:05 Pulse Rate 86 Respiratory Rate 28 H Blood Pressure 120/70 118/57 L Pulse Oximetry 06/17/23 14:05 06/17/23 14:10 06/17/23 14:10 Pulse Rate 91 H 84 Respiratory Rate 26 H 23 Blood Pressure 117/57 L Pulse Oximetry 06/17/23 14:15 06/17/23 14:15 06/17/23 14:20 Pulse Rate 83 85 Respiratory Rate 23 23 Blood Pressure 104/56 L Pulse Oximetry 06/17/23 14:20 06/17/23 14:25 06/17/23 14:25 Pulse Rate 84 Respiratory Rate 21 Blood Pressure 107/54 L 102/52 L Pulse Oximetry 06/17/23 14:30 06/17/23 14:30 06/17/23 14:35 Pulse Rate 82 Respiratory Rate 20 Blood Pressure 110/51 L 102/54 L Pulse Oximetry 06/17/23 14:35 06/17/23 14:40 06/17/23 14:40 Pulse Rate 82 82 Respiratory Rate 20 17 Blood Pressure 104/52 L Pulse Oximetry 06/17/23 14:45 06/17/23 14:45 06/17/23 14:50 Pulse Rate 81 80 Respiratory Rate 16 20 Blood Pressure 107/53 L Pulse Oximetry 06/17/23 14:50 06/17/23 14:55 06/17/23 14:55 Pulse Rate 80 Respiratory Rate 20 Blood Pressure 109/55 L 101/54 L Pulse Oximetry 06/17/23 15:00 06/17/23 15:00 06/17/23 15:05 Pulse Rate 81 Respiratory Rate 21 Blood Pressure 100/55 L 103/52 L Pulse Oximetry 06/17/23 15:05 06/17/23 15:10 06/17/23 15:10 Pulse Rate 82 82 Respiratory Rate 17 18 Blood Pressure 97/49 L Pulse Oximetry 06/17/23 15:15 06/17/23 15:15 06/17/23 15:20 Pulse Rate 81 Respiratory Rate 18 Blood Pressure 99/53 L 95/53 L Pulse Oximetry 06/17/23 15:20 06/17/23 15:25 06/17/23 15:25 Pulse Rate 81 81 Respiratory Rate 22 18 Blood Pressure 98/54 L Pulse Oximetry 06/17/23 15:30 06/17/23 15:30 06/17/23 15:35 Pulse Rate 82 Respiratory Rate 18 Blood Pressure 106/55 L 109/54 L Pulse Oximetry 06/17/23 15:35 06/17/23 15:40 06/17/23 15:40 Pulse Rate 83 81 Respiratory Rate 18 18 Blood Pressure 107/54 L Pulse Oximetry 06/17/23 15:45 06/17/23 15:45 06/17/23 15:50 Pulse Rate 80 Respiratory Rate 19 Blood Pressure 147/100 H 109/53 L Pulse Oximetry 06/17/23 15:50 06/17/23 15:55 06/17/23 15:55 Pulse Rate 82 82 Respiratory Rate 18 18 Blood Pressure 112/55 L Pulse Oximetry 06/17/23 16:00 06/17/23 16:00 06/17/23 16:05 Pulse Rate 82 Respiratory Rate 19 Blood Pressure 104/55 L 101/50 L Pulse Oximetry 06/17/23 16:05 06/17/23 16:10 06/17/23 16:10 Pulse Rate 82 82 Respiratory Rate 19 21 Blood Pressure 112/59 L Pulse Oximetry 06/17/23 16:15 06/17/23 16:15 06/17/23 16:20 Pulse Rate 82 Respiratory Rate 22 Blood Pressure 109/59 L 112/56 L Pulse Oximetry 06/17/23 16:20 06/17/23 16:25 06/17/23 16:25 Pulse Rate 79 82 Respiratory Rate 19 17 Blood Pressure 123/57 L Pulse Oximetry 06/17/23 16:30 06/17/23 16:30 06/17/23 16:35 Pulse Rate 81 83 Respiratory Rate 16 30 H Blood Pressure 117/55 L Pulse Oximetry 06/17/23 16:40 06/17/23 16:40 06/17/23 16:45 Pulse Rate 82 81 Respiratory Rate Blood Pressure 135/93 H Pulse Oximetry 06/17/23 16:46 06/17/23 16:46 06/17/23 16:50 Pulse Rate 81 Respiratory Rate 24 Blood Pressure 143/61 H 115/59 L Pulse Oximetry 06/17/23 16:50 06/17/23 16:55 06/17/23 16:55 Pulse Rate 84 84 Respiratory Rate 24 21 Blood Pressure 130/54 L Pulse Oximetry 06/17/23 17:00 06/17/23 17:00 06/17/23 17:05 Pulse Rate 82 Respiratory Rate 20 Blood Pressure 115/55 L 115/58 L Pulse Oximetry 06/17/23 17:05 06/17/23 17:10 06/17/23 17:10 Pulse Rate 82 80 Respiratory Rate 20 19 Blood Pressure 115/57 L Pulse Oximetry 95 06/17/23 17:15 06/17/23 17:15 06/17/23 17:20 Pulse Rate 82 Respiratory Rate Blood Pressure 117/59 L 126/82 Pulse Oximetry 97 06/17/23 17:20 06/17/23 17:25 06/17/23 17:25 Pulse Rate 83 82 Respiratory Rate 21 18 Blood Pressure 118/57 L Pulse Oximetry 96 96 06/17/23 17:30 06/17/23 17:30 06/17/23 17:35 Pulse Rate 83 83 Respiratory Rate 19 18 Blood Pressure 117/59 L Pulse Oximetry 96 97 06/17/23 17:35 06/17/23 17:40 06/17/23 17:40 Pulse Rate 82 Respiratory Rate 17 Blood Pressure 121/57 L 119/57 L Pulse Oximetry 97 06/17/23 17:45 06/17/23 17:45 06/17/23 17:50 Pulse Rate 81 83 Respiratory Rate 16 25 H Blood Pressure 115/57 L Pulse Oximetry 97 96 06/17/23 17:50 06/17/23 17:55 06/17/23 17:55 Pulse Rate 83 Respiratory Rate 23 Blood Pressure 123/58 L 119/58 L Pulse Oximetry 95 06/17/23 18:00 06/17/23 18:00 06/17/23 18:05 Pulse Rate 81 Respiratory Rate 20 Blood Pressure 120/56 L 119/56 L Pulse Oximetry 95 06/17/23 18:05 06/17/23 18:10 06/17/23 18:10 Pulse Rate 82 83 Respiratory Rate 20 20 Blood Pressure 116/57 L Pulse Oximetry 94 95 06/17/23 18:15 06/17/23 18:15 06/17/23 18:20 Pulse Rate 84 82 Respiratory Rate 19 19 Blood Pressure 119/58 L Pulse Oximetry 95 94 06/17/23 18:20 06/17/23 18:25 06/17/23 18:25 Pulse Rate 85 Respiratory Rate 21 Blood Pressure 122/60 122/61 Pulse Oximetry 95 06/17/23 18:30 06/17/23 18:30 06/17/23 18:35 Pulse Rate 84 Respiratory Rate 20 Blood Pressure 117/56 L 115/58 L Pulse Oximetry 94 06/17/23 18:35 06/17/23 18:40 06/17/23 18:40 Pulse Rate 86 85 Respiratory Rate 18 17 Blood Pressure 113/56 L Pulse Oximetry 95 96 06/17/23 18:45 06/17/23 18:45 06/17/23 18:50 Pulse Rate 82 Respiratory Rate 16 Blood Pressure 119/58 L 119/57 L Pulse Oximetry 95 06/17/23 18:50 06/17/23 18:55 06/17/23 18:55 Pulse Rate 84 86 Respiratory Rate 18 22 Blood Pressure 107/52 L Pulse Oximetry 95 95 06/17/23 19:00 06/17/23 19:00 06/17/23 19:05 Pulse Rate 85 84 Respiratory Rate 21 21 Blood Pressure 108/52 L Pulse Oximetry 94 95 06/17/23 19:05 06/17/23 19:10 06/17/23 19:10 Pulse Rate 84 Respiratory Rate 19 Blood Pressure 108/55 L 115/56 L Pulse Oximetry 94 MDM - Weakness <Ramone Brown DO - Last Filed: 06/19/23 10:44> Medical Records Medical records narrative: Medical records requested from [facility] and obtained noting a past medical history of AFib, hypertension, anticoagulation with Eliquis Lab Data 06/17/23 02:07 06/17/23 14:00 Labs: Lab Results 06/17/23 06/17/23 06/17/23 Range/Units 02:07 02:18 03:28 WBC 22.7 H (4.5-11.0) X10^3/uL RBC 4.37 L (4.5-5.9) X10^6/uL Hgb 13.6 (13.5-17.5) g/dL Hct 41.4 (41-53) % MCV 94.7 (80-100) fL MCH 31.0 (26-34) PG MCHC 32.8 (30-36) % RDW 16.3 H (11.6-14.8) % Plt Count 262 (150-400) X10^3/uL Neut % (Auto) 89.8 H (50-75) % Lymph % (Auto) 3.1 L (25-40) % Charles % (Auto) 6.9 (3-14) % Eos % (Auto) 0.0 L (2-4) % Baso % (Auto) 0.2 (0-2) % Neut # (Auto) 02790 H (0749-7763) /uL Lymph # (Auto) 700 L (7335-0907) /uL Charles # (Auto) 1600 H (0-900) /uL Eos # (Auto) 0 (0-450) /uL Baso # (Auto) 100 (0-100) /uL D-Dimer 541 H (<500) ng/ml VBG pH (7.33-7.43) VBG pCO2 (45-50) mmHg VBG pO2 (35-45) mmHg VBG HCO3 (24-28) mmol/L VBG Total CO2 (24-29) mmol/L VBG O2 Saturation (70-75) % VBG Base Excess (0-4) mmol/L FiO2 Sodium 136 L (137-145) mmol/L Potassium 6.2 H (3.4-5.1) mmol/L Chloride 106 (98-107) mmol/L Carbon Dioxide 9 L* (22-32) mmol/L BUN 155 H* (9-20) mg/dL Creatinine 9.25 H* (0.66-1.25) mg/dL Estimated GFR 5 L (>60) mL/min BUN/Creatinine Ratio 16.8 (6-22) Glucose 128 H (80-110) mg/dL Lactate 1.4 (0.7-2.1) mmol/L Calcium 10.8 H (8.4-10.2) mg/dL Magnesium 2.8 H (1.6-2.3) mg/dL Total Bilirubin 0.5 (0.2-1.3) mg/dL AST 19 (17-59) IU/L ALT 17 (<50) IU/L Alkaline Phosphatase 49 (38-126) U/L Total Protein 6.9 (6.3-8.2) g/dL Albumin 3.8 (3.5-5.0) g/dL Globulin 3.1 (1.7-4.1) g/dL Albumin/Globulin Ratio 1.2 (1.0-2.8) Lipase 234 (23-300) U/L Ur Random Sodium 10 L (30-90) mmol/L Urine Creatinine 582.2 mg/dL SARS-CoV-2 (PCR) Positive H (Negative) Influenza A (RT-PCR) Flu a negative (NEGATIVE) Influenza B (RT-PCR) Flu b negative (NEGATIVE) RSV (PCR) Negative (Negative) 06/17/23 06/17/23 06/17/23 Range/Units 04:19 05:22 07:52 WBC (4.5-11.0) X10^3/uL RBC (4.5-5.9) X10^6/uL Hgb (13.5-17.5) g/dL Hct (41-53) % MCV (80-100) fL MCH (26-34) PG MCHC (30-36) % RDW (11.6-14.8) % Plt Count (150-400) X10^3/uL Neut % (Auto) (50-75) % Lymph % (Auto) (25-40) % Charles % (Auto) (3-14) % Eos % (Auto) (2-4) % Baso % (Auto) (0-2) % Neut # (Auto) (3908-7547) /uL Lymph # (Auto) (4272-7002) /uL Charles # (Auto) (0-900) /uL Eos # (Auto) (0-450) /uL Baso # (Auto) (0-100) /uL D-Dimer (<500) ng/ml VBG pH 7.12 L* (7.33-7.43) VBG pCO2 30.5 L (45-50) mmHg VBG pO2 35 (35-45) mmHg VBG HCO3 10 L (24-28) mmol/L VBG Total CO2 11 L (24-29) mmol/L VBG O2 Saturation 51 L (70-75) % VBG Base Excess -19.0 L (0-4) mmol/L FiO2 21 Sodium 136 L 133 L (137-145) mmol/L Potassium 5.8 H 5.7 H (3.4-5.1) mmol/L Chloride 109 H 107 (98-107) mmol/L Carbon Dioxide 9 L* 10 L (22-32) mmol/L BUN 149 H* 149 H* (9-20) mg/dL Creatinine 8.71 H* 8.43 H* (0.66-1.25) mg/dL Estimated GFR 5 L 6 L (>60) mL/min BUN/Creatinine Ratio 17.1 17.7 (6-22) Glucose 100 159 H (80-110) mg/dL Lactate (0.7-2.1) mmol/L Calcium 9.9 10.0 (8.4-10.2) mg/dL Magnesium (1.6-2.3) mg/dL Total Bilirubin (0.2-1.3) mg/dL AST (17-59) IU/L ALT (<50) IU/L Alkaline Phosphatase (38-126) U/L Total Protein (6.3-8.2) g/dL Albumin (3.5-5.0) g/dL Globulin (1.7-4.1) g/dL Albumin/Globulin Ratio (1.0-2.8) Lipase (23-300) U/L Ur Random Sodium (30-90) mmol/L Urine Creatinine mg/dL SARS-CoV-2 (PCR) (Negative) Influenza A (RT-PCR) (NEGATIVE) Influenza B (RT-PCR) (NEGATIVE) RSV (PCR) (Negative) 06/17/23 Range/Units 14:00 WBC (4.5-11.0) X10^3/uL RBC (4.5-5.9) X10^6/uL Hgb (13.5-17.5) g/dL Hct (41-53) % MCV (80-100) fL MCH (26-34) PG MCHC (30-36) % RDW (11.6-14.8) % Plt Count (150-400) X10^3/uL Neut % (Auto) (50-75) % Lymph % (Auto) (25-40) % Charles % (Auto) (3-14) % Eos % (Auto) (2-4) % Baso % (Auto) (0-2) % Neut # (Auto) (1445-2176) /uL Lymph # (Auto) (4693-3621) /uL Charles # (Auto) (0-900) /uL Eos # (Auto) (0-450) /uL Baso # (Auto) (0-100) /uL D-Dimer (<500) ng/ml VBG pH (7.33-7.43) VBG pCO2 (45-50) mmHg VBG pO2 (35-45) mmHg VBG HCO3 (24-28) mmol/L VBG Total CO2 (24-29) mmol/L VBG O2 Saturation (70-75) % VBG Base Excess (0-4) mmol/L FiO2 Sodium 133 L (137-145) mmol/L Potassium 4.8 (3.4-5.1) mmol/L Chloride 104 (98-107) mmol/L Carbon Dioxide 14 L (22-32) mmol/L BUN 141 H* (9-20) mg/dL Creatinine 7.54 H* (0.66-1.25) mg/dL Estimated GFR 7 L (>60) mL/min BUN/Creatinine Ratio 18.7 (6-22) Glucose 129 H (80-110) mg/dL Lactate (0.7-2.1) mmol/L Calcium 9.5 (8.4-10.2) mg/dL Magnesium (1.6-2.3) mg/dL Total Bilirubin (0.2-1.3) mg/dL AST (17-59) IU/L ALT (<50) IU/L Alkaline Phosphatase (38-126) U/L Total Protein (6.3-8.2) g/dL Albumin (3.5-5.0) g/dL Globulin (1.7-4.1) g/dL Albumin/Globulin Ratio (1.0-2.8) Lipase (23-300) U/L Ur Random Sodium (30-90) mmol/L Urine Creatinine mg/dL SARS-CoV-2 (PCR) (Negative) Influenza A (RT-PCR) (NEGATIVE) Influenza B (RT-PCR) (NEGATIVE) RSV (PCR) (Negative) Point of Care Testing Glucose POC 185 Urine Dip Bedside Urine Glucose Negative Bedside Urine Bilirubin - Negative Bedside Urine Ketone - Negative Urine Specific [place] 1.03 Bedside Urine Occult Blood +/- Bedside Urine pH 5.5 Bedside Urine Protein +/- 15 Bedside Urine Urobilinogen - Negative Bedside Urine Nitrite - Negative Bedside Urine Leukocytes - Negative Esterase Imaging Data CT scan - chest: Radiologist Impression: Hiatal hernia and esophageal wall thickening suggestive of esophagitis CT scan - abdomen/pelvis: Radiologist Impression: No obstructive uropathy MDM Narrative Medical decision making narrative: CC: 87-year-old male with nausea, vomiting and weakness, known COVID Complicating co-morbidities: Age, AFib, hypertension, takes spironolactone and torsemide Data collected from: Patient Medical records reviewed: Prior notes reviewed in our EMR Differential considered, but not limited to: COVID versus bacterial superinfection versus electrolyte abnormality versus dehydration with renal failure to include prerenal versus intrinsic versus obstructive uropathy Exam documented above, pertinent findings include: Dry mucous membranes, heart rate regular, lungs clear, abdomen soft, poor skin turgor Independently reviewed EKG as above Imaging studies independently reviewed: Labs: Leukocytosis, no anemia. Sodium 136, K 6.2, Co2, 9, BUN 155, Creat 9.25 (baseline 1.2). VBG 7.122, CO2 30.5, HCO3 10 (metabolic acidosis) Scores Used: FeNa 0.1% c/w prerenal cause. Consultations: Treatments: Re-evaluations: Discussion: 06 - call to [facility]. No beds. On List. 06 - [place]. No beds. On List. 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 06 - discussed case with Dr. Jacob (Nephro at [facility]). Recommends switching fluids to D5W with 3amps bicarb at 150mL/hr 0635 - Levo running. BP now 127/87. Patient resting comfortably <Rebecca Overton DO - Last Filed: 06/20/23 00:29> Lab Data Labs: Lab Results 06/17/23 06/17/23 06/17/23 Range/Units 02:07 02:18 03:28 WBC 22.7 H (4.5-11.0) X10^3/uL RBC 4.37 L (4.5-5.9) X10^6/uL Hgb 13.6 (13.5-17.5) g/dL Hct 41.4 (41-53) % MCV 94.7 (80-100) fL MCH 31.0 (26-34) PG MCHC 32.8 (30-36) % RDW 16.3 H (11.6-14.8) % Plt Count 262 (150-400) X10^3/uL Neut % (Auto) 89.8 H (50-75) % Lymph % (Auto) 3.1 L (25-40) % Charles % (Auto) 6.9 (3-14) % Eos % (Auto) 0.0 L (2-4) % Baso % (Auto) 0.2 (0-2) % Neut # (Auto) 31811 H (8032-9569) /uL Lymph # (Auto) 700 L (8057-3600) /uL Charles # (Auto) 1600 H (0-900) /uL Eos # (Auto) 0 (0-450) /uL Baso # (Auto) 100 (0-100) /uL D-Dimer 541 H (<500) ng/ml VBG pH (7.33-7.43) VBG pCO2 (45-50) mmHg VBG pO2 (35-45) mmHg VBG HCO3 (24-28) mmol/L VBG Total CO2 (24-29) mmol/L VBG O2 Saturation (70-75) % VBG Base Excess (0-4) mmol/L FiO2 Sodium 136 L (137-145) mmol/L Potassium 6.2 H (3.4-5.1) mmol/L Chloride 106 (98-107) mmol/L Carbon Dioxide 9 L* (22-32) mmol/L BUN 155 H* (9-20) mg/dL Creatinine 9.25 H* (0.66-1.25) mg/dL Estimated GFR 5 L (>60) mL/min BUN/Creatinine Ratio 16.8 (6-22) Glucose 128 H (80-110) mg/dL Lactate 1.4 (0.7-2.1) mmol/L Calcium 10.8 H (8.4-10.2) mg/dL Magnesium 2.8 H (1.6-2.3) mg/dL Total Bilirubin 0.5 (0.2-1.3) mg/dL AST 19 (17-59) IU/L ALT 17 (<50) IU/L Alkaline Phosphatase 49 (38-126) U/L Total Protein 6.9 (6.3-8.2) g/dL Albumin 3.8 (3.5-5.0) g/dL Globulin 3.1 (1.7-4.1) g/dL Albumin/Globulin Ratio 1.2 (1.0-2.8) Lipase 234 (23-300) U/L Ur Random Sodium 10 L (30-90) mmol/L Urine Creatinine 582.2 mg/dL SARS-CoV-2 (PCR) Positive H (Negative) Influenza A (RT-PCR) Flu a negative (NEGATIVE) Influenza B (RT-PCR) Flu b negative (NEGATIVE) RSV (PCR) Negative (Negative) 06/17/23 06/17/23 06/17/23 Range/Units 04:19 05:22 07:52 WBC (4.5-11.0) X10^3/uL RBC (4.5-5.9) X10^6/uL Hgb (13.5-17.5) g/dL Hct (41-53) % MCV (80-100) fL MCH (26-34) PG MCHC (30-36) % RDW (11.6-14.8) % Plt Count (150-400) X10^3/uL Neut % (Auto) (50-75) % Lymph % (Auto) (25-40) % Charles % (Auto) (3-14) % Eos % (Auto) (2-4) % Baso % (Auto) (0-2) % Neut # (Auto) (2654-1002) /uL Lymph # (Auto) (3753-4742) /uL Charles # (Auto) (0-900) /uL Eos # (Auto) (0-450) /uL Baso # (Auto) (0-100) /uL D-Dimer (<500) ng/ml VBG pH 7.12 L* (7.33-7.43) VBG pCO2 30.5 L (45-50) mmHg VBG pO2 35 (35-45) mmHg VBG HCO3 10 L (24-28) mmol/L VBG Total CO2 11 L (24-29) mmol/L VBG O2 Saturation 51 L (70-75) % VBG Base Excess -19.0 L (0-4) mmol/L FiO2 21 Sodium 136 L 133 L (137-145) mmol/L Potassium 5.8 H 5.7 H (3.4-5.1) mmol/L Chloride 109 H 107 (98-107) mmol/L Carbon Dioxide 9 L* 10 L (22-32) mmol/L BUN 149 H* 149 H* (9-20) mg/dL Creatinine 8.71 H* 8.43 H* (0.66-1.25) mg/dL Estimated GFR 5 L 6 L (>60) mL/min BUN/Creatinine Ratio 17.1 17.7 (6-22) Glucose 100 159 H (80-110) mg/dL Lactate (0.7-2.1) mmol/L Calcium 9.9 10.0 (8.4-10.2) mg/dL Magnesium (1.6-2.3) mg/dL Total Bilirubin (0.2-1.3) mg/dL AST (17-59) IU/L ALT (<50) IU/L Alkaline Phosphatase (38-126) U/L Total Protein (6.3-8.2) g/dL Albumin (3.5-5.0) g/dL Globulin (1.7-4.1) g/dL Albumin/Globulin Ratio (1.0-2.8) Lipase (23-300) U/L Ur Random Sodium (30-90) mmol/L Urine Creatinine mg/dL SARS-CoV-2 (PCR) (Negative) Influenza A (RT-PCR) (NEGATIVE) Influenza B (RT-PCR) (NEGATIVE) RSV (PCR) (Negative) 06/17/23 Range/Units 14:00 WBC (4.5-11.0) X10^3/uL RBC (4.5-5.9) X10^6/uL Hgb (13.5-17.5) g/dL Hct (41-53) % MCV (80-100) fL MCH (26-34) PG MCHC (30-36) % RDW (11.6-14.8) % Plt Count (150-400) X10^3/uL Neut % (Auto) (50-75) % Lymph % (Auto) (25-40) % Charles % (Auto) (3-14) % Eos % (Auto) (2-4) % Baso % (Auto) (0-2) % Neut # (Auto) (5844-1387) /uL Lymph # (Auto) (6912-7345) /uL Charles # (Auto) (0-900) /uL Eos # (Auto) (0-450) /uL Baso # (Auto) (0-100) /uL D-Dimer (<500) ng/ml VBG pH (7.33-7.43) VBG pCO2 (45-50) mmHg VBG pO2 (35-45) mmHg VBG HCO3 (24-28) mmol/L VBG Total CO2 (24-29) mmol/L VBG O2 Saturation (70-75) % VBG Base Excess (0-4) mmol/L FiO2 Sodium 133 L (137-145) mmol/L Potassium 4.8 (3.4-5.1) mmol/L Chloride 104 (98-107) mmol/L Carbon Dioxide 14 L (22-32) mmol/L BUN 141 H* (9-20) mg/dL Creatinine 7.54 H* (0.66-1.25) mg/dL Estimated GFR 7 L (>60) mL/min BUN/Creatinine Ratio 18.7 (6-22) Glucose 129 H (80-110) mg/dL Lactate (0.7-2.1) mmol/L Calcium 9.5 (8.4-10.2) mg/dL Magnesium (1.6-2.3) mg/dL Total Bilirubin (0.2-1.3) mg/dL AST (17-59) IU/L ALT (<50) IU/L Alkaline Phosphatase (38-126) U/L Total Protein (6.3-8.2) g/dL Albumin (3.5-5.0) g/dL Globulin (1.7-4.1) g/dL Albumin/Globulin Ratio (1.0-2.8) Lipase (23-300) U/L Ur Random Sodium (30-90) mmol/L Urine Creatinine mg/dL SARS-CoV-2 (PCR) (Negative) Influenza A (RT-PCR) (NEGATIVE) Influenza B (RT-PCR) (NEGATIVE) RSV (PCR) (Negative) Point of Care Testing Glucose POC 185 Urine Dip Bedside Urine Glucose Negative Bedside Urine Bilirubin - Negative Bedside Urine Ketone - Negative Urine Specific [place] 1.03 Bedside Urine Occult Blood +/- Bedside Urine pH 5.5 Bedside Urine Protein +/- 15 Bedside Urine Urobilinogen - Negative Bedside Urine Nitrite - Negative Bedside Urine Leukocytes - Negative Esterase MDM Narrative Medical decision making narrative: CC: 87-year-old male with nausea, vomiting and weakness, known COVID Complicating co-morbidities: Age, AFib, hypertension, takes spironolactone and torsemide Data collected from: Patient Medical records reviewed: Prior notes reviewed in our EMR Differential considered, but not limited to: COVID versus bacterial superinfection versus electrolyte abnormality versus dehydration with renal failure to include prerenal versus intrinsic versus obstructive uropathy Exam documented above, pertinent findings include: Dry mucous membranes, heart rate regular, lungs clear, abdomen soft, poor skin turgor Independently reviewed EKG as above Imaging studies independently reviewed: Labs: Leukocytosis, no anemia. Sodium 136, K 6.2, Co2, 9, BUN 155, Creat 9.25 (baseline 1.2). VBG 7.122, CO2 30.5, HCO3 10 (metabolic acidosis) Scores Used: FeNa 0.1% c/w prerenal cause. Consultations: Treatments: Re-evaluations: Discussion: 0600 - call to [facility]. No beds. On List. 609 - [place]. No beds. On List. 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 06 - discussed case with Dr. Jacob (Nephro at [facility]). Recommends switching fluids to D5W with 3amps bicarb at 150mL/hr 0635 - Levo running. BP now 127/87. Patient resting comfortably Dr. Overton-no to me by Dr. Brown I have seen evaluated patient myself. Awake alert oriented is hungry. He continues to be hypotensive despite IV fluids. He is now on D5 with bicarb. Suspect severe dehydration from poor p.o. intake secondary to COVID. He has improving renal function, but not back to baseline. He is now on Levophed for persistent hypotension. He has not hypoxic. Critical bed shortage calling multiple hospitals including [facility] 11:30 DR. Herndon printing supervisor at [address] updated patient's symptoms test results and kindly accepts unfortunately no bed at [facility] for the 12- 18 hours Patient has improving labs. Bicarb has improved from 10-14 creatinine has improved from 8.4-7.5. At this time is recommended he continue on bicarb drip until bicarb is about 20 then switch over to normal saline. Continue to wean Levophed. Patient signed out to Dr. Whipple Critical Care Time <Rebecca Overton, DO - Last Filed: 06/20/23 00:29> Critical Care Time Critical Care Time: Yes Total Critical Care Time: 65 Attestation: The high probability of a clinically significant, sudden or life threatening deterioration of the [cardiovascular] system(s) required my full and direct attention, intervention and personal management. The aggregate critical care time was 65 minutes. This time is in addition to time spent performing reported procedures but includes the following: [x] Data Review and interpretation [x] Patient assessment and monitoring of vital signs [x] Documentation [x] Medication orders and management Discharge Plan Departure Patient Disposition: [facility] Clinical Impression: COVID-19, Acute kidney injury, Acute dehydration, Vomiting, Acute hyperkalemia, Metabolic acidosis Prescriptions: No Action hydrocodone-acetaminophen 5-325 mg tablet 1 tab PO Q6H PRN (Reason: pain) Qty: 10 0RF
--- NOTE | 2023-06-17 02:52 | DI.CT.S_ITS ---
PROCEDURE: CT KIDNEY URETER BLADDER (KUB) INDICATIONS: N/V, kidney failure TECHNIQUE: Axial sections were acquired from the lung bases to the pubic symphysis. Coronal and sagittal reformats were performed. For radiation dose reduction, the following was used: automated exposure control, adjustment of mA and/or kV according to patient size. COMPARISON: CT 03/22/2014. FINDINGS: Image quality: Diagnostic. Lower Chest: Cardiomegaly. Large hiatal hernia. URINARY: Right Kidney: Punctate nonobstructing right-sided nephrolithiasis. No hydronephrosis. Right Ureter: No hydroureter. Left Kidney: No stones or hydronephrosis. Left Ureter: No hydroureter. Bladder: Moderate wall thickening. Under distended. ABDOMEN: Liver: No contour-deforming solid mass. Gallbladder: No radiopaque gallstones or wall thickening. Biliary ducts: No biliary dilation. Pancreas: No ductal dilation. Spleen: Size is within normal limits. Adrenal Glands: Benign left adrenal adenoma based on characterization from 03/22/2014. Stomach and Bowel: Normal colonic caliber, without significant wall thickening. Colonic diverticulosis without evidence of diverticulitis. Peritoneum: No abnormal intraperitoneal fluid. No free air. Ventral Wall: No hernia. Abdominal Nodes: No enlarged retroperitoneal or mesenteric lymph nodes. Vessels: Aorta and inferior vena cava are normal in size. PELVIS: Pelvic Organs: Prostatomegaly. Pelvic Nodes: Unremarkable. Miscellaneous: No inguinal hernias are seen. Bones: Unremarkable. IMPRESSION: No obstructing stones or hydronephrosis. Moderate bladder wall thickening. Findings could be due to underdistention, trabeculation in the setting of prostatomegaly or infection. Correlate with urinalysis. Agree with preliminary report. Dictated by: Jona Burr M.D. on 06/17/2023 at 8:20 Approved by: Jona Burr M.D. on 06/17/2023 at 8:24
--- NOTE | 2023-06-17 02:52 | DI.CT.S_ITS ---
PROCEDURE: CT CHEST WO CON INDICATIONS: cough, SOB, weakness TECHNIQUE: Noncontrast 5 mm thick sections acquired from the pulmonary apices to the posterior costophrenic angles. 1 mm lung window, 5 mm thick coronal and sagittal and 7 mm axial MIP reformats were then acquired. For radiation dose reduction, the following was used: automated exposure control, adjustment of mA and/or kV according to patient size. COMPARISON: [facility], CT, CT CHEST WITHOUT CONTRAST, 12/04/2022, 14:35. [facility], CR, XR CHEST 1 VIEW, 12/12/2022, 11:31. FINDINGS: Image quality: Diagnostic. Lower Neck: No enlarged lymph nodes. Thyroid: No thyroid nodules which require sonographic follow up, per consensus guidelines. Axillae: No enlarged lymph nodes. Chest Wall: Unremarkable. Bones: Unremarkable. Lungs and Pleura: No pneumothorax or pleural effusions. No consolidation or suspicious nodules. mild dependent atelectasis in the lung bases. Heart: Heart size is normal. No pericardial effusion. Thoracic Vessels: The aorta and pulmonary arteries demonstrate normal size. Mediastinum and Kamla: No enlarged lymph nodes. Esophagus: There is mild diffuse subtle wall thickening. Small hiatal hernia. Upper Abdomen: Visualized upper abdomen solid organs and bowel loops appear normal. IMPRESSION: 1. No acute pulmonary consolidation. 2. Mild subtle wall thickening can be seen in the setting of esophagitis. Small hiatal hernia. There is no significant discrepancy when compared to the overnight preliminary report. Approved by: Tucker Brandt M.D. on 06/17/2023 at 8:28
[2023-06-17 03:02] LABS: Influenza A - CEPHEID Flu A NEGATIVE (NEGATIVE); Influenza B - CEPHEID Flu B NEGATIVE (NEGATIVE); Respiratory Syncytial Virus Negative (Negative)
[2023-06-17 03:06] LABS: COVID-19 CEPHEID 4-PLEX PCR POSITIVE (Negative)
[2023-06-17] MEDS: LIDOCAINE 2% (GLYDO) 6 ML GEL TOP (03:17)
[2023-06-17] MEDS: INSULIN REGULAR 100 UNIT/ML 3 ML VIAL IV (03:30)
[2023-06-17] MEDS: FUROSEMIDE 40 MG/4 ML VIAL IV (03:31)
[2023-06-17] MEDS: SODIUM ZIRCONIUM CYCLOSILICATE 10 GM POWD.PACK PO (03:31)
[2023-06-17] MEDS: DEXTROSE 10 % IN WATER 100 ML 1200 ML IV (03:32)
[2023-06-17] MEDS: cefTRIAXone 1,000 MG in SODIUM CHLORIDE 0.9% 100 ML 200 MG IV (03:40)
[2023-06-17] MEDS: SODIUM CHLORIDE 0.9% 1,000 ML 1000 ML IV (03:51)
[2023-06-17 03:56] LABS: Sodium Urine Random 10 mmol/L (30-90)
[2023-06-17 04:23] LABS: Creatinine Urine Random 582.2 mg/dL
[2023-06-17 05:41] LABS: Calcium 9.9 mg/dL (8.4-10.2); Chloride 109 mmol/L (98-107); Estimated Glomerular Filt Rate 5 mL/min (>60); Glucose 100 mg/dL (80-110); HEMOLYSIS < 15 (0-50); Sodium 136 mmol/L (137-145)
[2023-06-17 05:50] LABS: BUN Creatinine Ratio 17.1 (6-22); Potassium 5.8 mmol/L (3.4-5.1)
[2023-06-17 05:51] LABS: Blood Urea Nitrogen 149 mg/dL (9-20); Carbon Dioxide 9 mmol/L (22-32)
--- NOTE | 2023-06-17 05:56 | DI.RAD.S_ITS ---
PROCEDURE: XR CHEST 1V INDICATIONS: central line placement TECHNIQUE: One view of the chest was acquired. COMPARISON: [facility], CT, CT CHEST WO CON, 06/17/2023, 3:08. FINDINGS: Surgical changes and devices: A right internal jugular catheter is seen with tip projecting over the superior cavoatrial junction. Lungs and pleura: Lungs are clear. No pleural effusions or pneumothorax. Mediastinum: Mediastinal contours appear normal. Heart size is normal. Bones and chest wall: No suspicious bony lesions. Overlying soft tissues appear unremarkable. IMPRESSION: Right internal jugular catheter is seen in satisfactory position. There is no significant discrepancy when compared to the overnight preliminary report. Approved by: Tucker Brandt M.D. on 06/17/2023 at 8:24
[2023-06-17 06:20] LABS: pH VBG 7.12 (7.33-7.43)
[2023-06-17 06:21] LABS: Fractionated Inspired Oxygen 21; HCO3 VBG 10 mmol/L (24-28); Oxygen Saturation VBG 51 % (70-75); PCO2 VBG 30.5 mmHg (45-50); PO2 VBG 35 mmHg (35-45); Total CO2 VBG 11 mmol/L (24-29)
[2023-06-17] MEDS: NOREPINEPHRINE BITARTRATE/D5W 4 MG/250 ML PLAST..BAG 32.25 MG IV ×2 (06:52→14:50)
[2023-06-17] MEDS: SODIUM BICARB 8.4% VIAL 150 MEQ in DEXTROSE 5% WATER 1,000 ML IV ×2 (07:00→15:01)
[2023-06-17 08:10] LABS: Carbon Dioxide 10 mmol/L (22-32); Chloride 107 mmol/L (98-107); Estimated Glomerular Filt Rate 6 mL/min (>60); Glucose 159 mg/dL (80-110); Sodium 133 mmol/L (137-145)
[2023-06-17 08:11] LABS: Potassium 5.7 mmol/L (3.4-5.1)
[2023-06-17 08:19] LABS: BUN Creatinine Ratio 17.7 (6-22); HEMOLYSIS 20 (0-50)
[2023-06-17 08:20] LABS: Blood Urea Nitrogen 149 mg/dL (9-20)
--- NOTE | 2023-06-17 08:26 | PC.NURSE ---
Pt is a&ox4. Answers all questions appropriately and denies pain. Pt on norepi drip and responding well. Current MAP 72. See MAR for current dose/flow rate.
--- NOTE | 2023-06-17 10:05 | PC.NURSE ---
Pt resting in bed comfortably. Denies pain, n/v, sob, cp.
--- NOTE | 2023-06-17 10:29 | PC.NURSE ---
Pt bp 88/52, MAP 63. Dr Overton aware and verbal order to re-evaluate bp & MAP @ 1100.
--- NOTE | 2023-06-17 11:02 | PC.NURSE ---
Jaylene paused as per dr recinos verbal order. BP consistently rising. pt denies pain, n/v, sob. a&ox4.
--- NOTE | 2023-06-17 11:15 | PC.NURSE ---
Norepi restarted @ 8.53 mcg/min. BP 68/37 MAP 48. Pt reports that he was feeling dizzy and sleepy. denies cp
[2023-06-17 14:22] LABS: Calcium 9.5 mg/dL (8.4-10.2); Carbon Dioxide 14 mmol/L (22-32); Chloride 104 mmol/L (98-107); Estimated Glomerular Filt Rate 7 mL/min (>60); Glucose 129 mg/dL (80-110); HEMOLYSIS < 15 (0-50); Potassium 4.8 mmol/L (3.4-5.1); Sodium 133 mmol/L (137-145)
[2023-06-17 14:29] LABS: BUN Creatinine Ratio 18.7 (6-22)
[2023-06-17 14:30] LABS: Blood Urea Nitrogen 141 mg/dL (9-20)
== END 2023-06-17 22:00 | disposition short-term general hospital (02) ==
PROVIDERS: Emergency Medicine; Emergency Provider Emergency Medicine
DX: U07.1 COVID-19 (principal); N17.9 Acute kidney failure, unspecified; E86.0 Dehydration; E87.5 Hyperkalemia; E87.20 Acidosis, unspecified; R05.9 Cough, unspecified; Z79.01 Long term (current) use of anticoagulants
CPT/HCPCS: 0241U; 36415; 71045; 71250; 74176; 80048; 80053; 81003; 82570; 82805; 82962; 83605; 83690; 83735; 84300; 85025; 85379; 87040; 93005; 96361; 96365; 96366; 96367; 96375; 99285; 99291; C9113; J0696; J1940; J2405

== ENCOUNTER 2025-01-26 13:42 | Inpatient (IN) | payer MEDICARE, BC, SELFPAY ==
[2025-01-26] VITALS (17 sets, daily range): BP systolic 92–123; BP diastolic 52–70; PULSE 77–90; RESP 14–20; TEMP 36.3; O2SAT 92–99; BMI 30.7
--- NOTE | 2025-01-26 13:46 | DI.CT.S_ITS ---
PROCEDURE: CT PEL WO CON INDICATIONS: Left hip pain TECHNIQUE: Noncontrast 3 mm axial sections acquired through the bony pelvis, with coronal and sagittal reformatting. COMPARISON: None. FINDINGS: Image quality: Diagnostic Bones: Moderately angulated and displaced subcapital hip fracture. There are comminuted fragments. Femoral head remains in the acetabulum. Background degenerative changes at the lumbosacral junction. Soft tissues: Edema is seen surrounding the left hip fracture. Soft tissue is seen at the bladder neck, possibly related to BPH, though not well assessed on this study. Prostate calcifications are present with prostatomegaly. IMPRESSION: Comminuted moderately displaced and angulated left subcapital hip fracture. Dictated by: Naresh Murillo M.D. on 01/26/2025 at 16:25 Approved by: Naresh Murillo M.D. on 01/26/2025 at 16:27
[2025-01-26 14:47] LABS: Add Manual Diff / Slide Review NO; Hematocrit 43.6 % (41-53); Hemoglobin 15.0 g/dL (13.5-17.5); Lymphocytes Absolute Auto 400 /uL (1100-4500); Mean Corpuscular HGB Conc 34.4 % (30-36); Mean Corpuscular Hemoglobin 32.8 PG (26-34); Mean Corpuscular Volume 95.4 fL (80-100); Platelet Count 216 X10^3/uL (150-400)
[2025-01-26 15:00] LABS: Alanine Aminotransferase 20 IU/L (<50); Albumin 4.4 g/dL (3.5-5.0); Albumin Globulin Ratio 1.8 (1.0-2.8); Alkaline Phosphatase 70 U/L (38-126); Blood Urea Nitrogen 41 mg/dL (9-20); Calcium 10.1 mg/dL (8.4-10.2); Carbon Dioxide 24 mmol/L (22-32); Chloride 102 mmol/L (98-107); Estimated Glomerular Filt Rate 36 mL/min (>60); Globulin 2.5 g/dL (1.7-4.1); Glucose 102 mg/dL (70-99); HEMOLYSIS < 15 (0-50); Potassium 4.1 mmol/L (3.4-5.1); Sodium 137 mmol/L (137-145); Total Protein 6.9 g/dL (6.3-8.2)
--- NOTE | 2025-01-26 15:28 | ED_ITS ---
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 He denies headache, dizziness, chest pain, shortness of breath, dyspnea on exertion, blurred vision, back pain, nausea vomiting diarrhea. Other than what is stated 14 point review of system is negative. Related Data Previous Rx's ?Medication ?Instructions ?Recorded hydrocodone 5 mg-acetaminophen 325 1 tab PO Q6H PRN pa in #10 tabs 11/28/22 mg tablet Allergies Allergy/AdvReac Type Severity Reaction Status Date / Time acetaminophen (From Tylenol) AdvReac Weakness Verified 01/26/25 13:51 Review of Systems Review of Systems ROS Unobtainable: All systems reviewed & are unremarkable except as noted in HPI and below Patient History Smoking Status: Former smoker tobacco type: cigarettes Exam Narrative Exam Narrative: GENERAL: [89] year old patient appears stated age. Well-developed patient, in mild distress. HEAD: Atraumatic. Normocephalic. EYES: Pupils equal round and reactive. Extraocular motions intact. No scleral icterus. No injection or drainage. ENT: Nose without bleeding, purulent drainage. Throat without erythema, tonsillar hypertrophy or exudate. Airway patent. NECK: Trachea midline. Non tender CARDIOVASCULAR: Regular rate and rhythm without murmurs, gallops, or rubs. RESPIRATORY: Clear to auscultation. Breath sounds equal bilaterally. No wheezes, rales, or rhonchi. GASTROINTESTINAL: Abdomen soft, non-tender, nondistended. EXTREMITIES: No edema or joint tenderness. BACK: Nontender without deformity or crepitance. No flank tenderness. NEURO: AOx3. SKIN: No rash or erythema of visible areas Initial Vital Signs Initial Vital Signs: Vital Signs Temperature 97.4 F L 01/26/25 13:50 Pulse Rate 90 01/26/25 13:50 Respiratory Rate 18 01/26/25 13:50 Blood Pressure 122/57 L 01/26/25 13:50 Pulse Oximetry 97 01/26/25 13:50 Oxygen Delivery Method Room Air 01/26/25 13:50 Course Orders Ordered: ED Orders 01/26/25 13:46 CT pelvis wo con Stat 01/26/25 14:37 CBC Auto Diff [Complete Blood Count AUTO DIFF] Stat CMP [Comprehensive Metabolic Panel] Stat Vital Signs Vital signs: Vital Signs - 8 hr 01/26/25 13:50 01/26/25 14:43 Temperature 97.4 F L Pulse Rate 90 85 Respiratory Rate 18 14 Blood Pressure 122/57 L 114/67 Pulse Oximetry 97 99 Oxygen Delivery Method Room Air Room Air MDM - Extremity Injury (Lower) Lab Data 01/26/25 14:37 01/26/25 14:37 Labs: Lab Results 01/26/25 Range/Units 14:37 WBC 11.3 H (4.5-11.0) X10^3/uL RBC 4.57 (4.5-5.9) X10^6/uL Hgb 15.0 (13.5-17.5) g/dL Hct 43.6 (41-53) % MCV 95.4 (80-100) fL MCH 32.8 (26-34) PG MCHC 34.4 (30-36) % RDW 13.8 (11.6-14.8) % Plt Count 216 (150-400) X10^3/uL Neut % (Auto) 89.5 H (50-75) % Lymph % (Auto) 3.5 L (25-40) % [place] % (Auto) 5.8 (3-14) % Eos % (Auto) 0.6 L (2-4) % Baso % (Auto) 0.6 (0-2) % Neut # (Auto) 32664 H (9154-5441) /uL Lymph # (Auto) 400 L (5637-9770) /uL [place] # (Auto) 700 (0-900) /uL Eos # (Auto) 100 (0-450) /uL Baso # (Auto) 100 (0-100) /uL Sodium 137 (137-145) mmol/L Potassium 4.1 (3.4-5.1) mmol/L Chloride 102 (98-107) mmol/L Carbon Dioxide 24 (22-32) mmol/L BUN 41 H (9-20) mg/dL Creatinine 1.81 H (0.66-1.25) mg/dL Estimated GFR 36 L (>60) mL/min BUN/Creatinine Ratio 22.7 H (6-22) Glucose 102 H (70-99) mg/dL Calcium 10.1 (8.4-10.2) mg/dL Total Bilirubin 0.5 (0.2-1.3) mg/dL AST 26 (17-59) IU/L ALT 20 (<50) IU/L Alkaline Phosphatase 70 (38-126) U/L Total Protein 6.9 (6.3-8.2) g/dL Albumin 4.4 (3.5-5.0) g/dL Globulin 2.5 (1.7-4.1) g/dL Albumin/Globulin Ratio 1.8 (1.0-2.8) Imaging Data CT scan - abdomen/pelvis: Radiologist's Impression: [address] [address] [address] Scan Report Signed Patient: Henri Weaver MR#: [id number] : 1935 Acct:[id number] Age/Sex: 89 / M Date of Service: 01/26/25 Loc: ED Accession Number: [id number] Procedure: CT pelvis wo con Ordering Provider: Gaurang Ortiz D.O. PROCEDURE: CT PEL WO CON INDICATIONS: Left hip pain TECHNIQUE: Noncontrast 3 mm axial sections acquired through the bony pelvis, with coronal and sagittal reformatting. COMPARISON: None. FINDINGS: Image quality: Diagnostic Bones: Moderately angulated and displaced subcapital hip fracture. There are comminuted fragments. Femoral head remains in the acetabulum. Background degenerative changes at the lumbosacral junction. Soft tissues: Edema is seen surrounding the left hip fracture. Soft tissue is seen at the bladder neck, possibly related to BPH, though not well assessed on this study. Prostate calcifications are present with prostatomegaly. IMPRESSION: Comminuted moderately displaced and angulated left subcapital hip fracture. MDM Narrative Medical decision making narrative: Vital signs, nurse triage note, medication list, previous ER visits, and all imaging studies reviewed. CT scan shows comminuted moderately displaced and angulated left subcapital hip fracture. WBC 11.3 BUN 41 creatinine 1.81. X-ray pelvis shows acute displaced left femoral neck fracture. CT pelvis showed comminuted moderately displaced and angulated left subcapital hip fracture. Case discussed with Dr. Jb Haq MD who has graciously accepted pt for inpatient admission. Differential diagnosis includes fracture dislocation contusion. Discharge Plan Departure Patient Disposition: Admitted As Inpatient Clinical Impression: Closed intertrochanteric fracture Qualifiers: Encounter type: initial encounter Fracture alignment: displaced Laterality: l eft Qualified Code(s): S72.142A - Displaced intertrochanteric fracture of left femur, initial encounter for closed fracture Admit Date/Time: 01/26/25 17:37 Admit Provider: Arie Rivas
--- NOTE | 2025-01-26 16:42 | DI.RAD.S_ITS ---
PROCEDURE: XR PELVIS 1-2V INDICATIONS: fall trauma TECHNIQUE: 1 view(s) of the pelvis acquired. COMPARISON: None. FINDINGS: Bones: There is suggestion of acute fracture involving left femoral neck with superior migration of left femoral shaft in relation to the femoral head suggest clinical correlation. 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 No evidence of avascular necrosis of femoral head. No suspicious bony lesions. Soft tissues: Visualized bowel gas pattern is normal. No suspicious soft tissue calcifications. IMPRESSION: Finding is concerning for acute displaced left femoral neck fracture. Please correlate with CT of pelvis findings from the same day. Dictated by: Cortes Amador M.D. on 01/26/2025 at 17:02 Approved by: Cortes Amador M.D. on 01/26/2025 at 17:03
--- NOTE | 2025-01-26 17:22 | PM.CN.IH.1 ---
History of Present Illness Consult details Date Patient Seen: 01/26/25 Time Patient Seen: 17:22 Chief complaint: GLF Left Hip Reason for consult: Left hip fracture Narrative: Henri is an 89-year-old male who sustained an injury to his left hip after a ground level fall earlier today. He presented to the emergency room and a CT scan revealed a displaced fracture of his left femoral neck. There is no significant arthritis on the CT scan. Plain films confirmed the suspected diagnosis as well. He reports no previous pain in the hip. He lives in a senior center independently. Meds Home Medications and Allergies Home Medications ?Medication ?Instructions ?Recorded ?Confirmed ?Type hydrocodone 5 mg-acetaminophen 325 1 tab PO Q6H PRN pain #10 tabs 11/28/22 Rx mg tablet Allergies Allergy/AdvReac Type Severity Reaction Status Date / Time acetaminophen (From Tylenol) AdvReac Weakness Verified 01/26/25 13:51 Exam Vital Signs (past 8 hours): - 01/26/25 13:50 01/26/25 14:43 01/26/25 15:35 Temperature 97.4 F L Pulse Rate 90 85 Respiratory Rate 18 14 Blood Pressure 122/57 L 114/67 104/66 Pulse Oximetry 97 99 Oxygen Delivery Method Room Air Room Air 01/26/25 15:35 01/26/25 16:00 01/26/25 16:00 Temperature Pulse Rate 85 84 Respiratory Rate 16 Blood Pressure 104/57 L Pulse Oximetry 94 95 Oxygen Delivery Method Oxygen Delivery Method Room Air Narrative Exam Narrative: Left lower extremity is held in a shortened and externally rotated position. He has tenderness about the hip. Log roll is painful. Distal motor and sensory exams are intact. Objective Imaging Pelvis x-ray: My impression: AP pelvis performed January 26, 2025 is personally assessed. There is a displaced fracture of the left femoral neck which shortened. No other acute osseous abnormalities are appreciated. There is no significant arthritis of the left hip. CT scan - pelvis: My impression: CT scan of the pelvis performed January 26, 2025 is personally assessed. There is a basicervical femoral neck fracture of the left hip. No other acute osseous abnormalities are noted. There is no significant arthritic changes of the hip joint. Labs 01/26/25 14:37 01/26/25 14:37 Labs: Laboratory Results - last 24 hr 01/26/25 14:37 WBC 11.3 H RBC 4.57 Hgb 15.0 Hct 43.6 MCV 95.4 MCH 32.8 MCHC 34.4 RDW 13.8 Plt Count 216 Neut % (Auto) 89.5 H Lymph % (Auto) 3.5 L [place] % (Auto) 5.8 Eos % (Auto) 0.6 L Baso % (Auto) 0.6 Neut # (Auto) 77373 H Lymph # (Auto) 400 L [place] # (Auto) 700 Eos # (Auto) 100 Baso # (Auto) 100 Sodium 137 Potassium 4.1 Chloride 102 Carbon Dioxide 24 BUN 41 H Creatinine 1.81 H Estimated GFR 36 L BUN/Creatinine Ratio 22.7 H Glucose 102 H Calcium 10.1 Total Bilirubin 0.5 AST 26 ALT 20 Alkaline Phosphatase 70 Total Protein 6.9 Albumin 4.4 Globulin 2.5 Albumin/Globulin Ratio 1.8 PFSH Tobacco & Substance Use Smoking Status: Former smoker Assessment & Plan Assessment & Plan narrative: The patient sustained a displaced femoral neck fracture of his left hip. We discussed management options including nonoperative care, internal fixation, and arthroplasty options. Based on his age and the lack of significant arthritic change, I think he would be an excellent candidate for a hip hemiarthroplasty. He is agreeable with this recommendation. Risks were discussed today. This included, but were not limited to: Bleeding, infection, drug reactions, neurovascular injury, incomplete pain relief, stiffness, arthritis, periprosthetic infection, periprosthetic fracture, DVT, PE, and . Patient voiced understanding acceptance of the risks. We will work on getting him onto the OR schedule tomorrow after medical clearance has been obtained. Surgical plan will be for a bipolar hemiarthroplasty of the left hip. Time-Based Coding :: [TOTAL MINUTES] spent with patient and on the chart (including review of chart, obtaining history, exam, reviewing outside data, placing orders, documenting exam and treatment plan, and counseling patient) on [DATE]. PROFEE Charge Codes Inpatient or Observation consultation: [id number]
--- NOTE | 2025-01-26 18:50 | CM.IDA ---
Initial DCP Assessment Note Patient is 89 y/o male who presents to ED via EMS due to concern to left hip pain post GLF today. Patient admitted due to concern for left femur fx, surgery scheduled tomorrow with Dr. Rivas. Patient's PCP is DOMINGO Moyer at [facility], Patient has Medicare and [facility] Blue Cross Insurance. CURED MEAT PACKING SUPERVISOR enters room to meet with patient, present in room is patient's daughter Telma. Patient presents as A/Ox4. Patient resides at [facility] in [place], Patient's daughter resides in [place] as well. Patient endorses he is independent with ADLs at baseline, he states that he receive rides from his daughter, [employer] or takes the bus. Patient endorses that [facility] assists with meals and cleaning. Patient denies any use of DME and denies hx of falls. Patient endorses he was just out whale watching yesterday and goes to the senior center regularly. Patient endorses preference to d/c to [facility] upon d/c, patient endorses he is open to Home health or SNF rehab at [facility] if it is recommended. Plan: patient admitted for further treatment and evaluation, pending surgery tomorrow, DCP to f/u with POC, pending PT eval post op. Home with HH vs. SNF rehab. CAROL Helms Discharge Planning/Care Management CM Discharge Assessment Start: 01/26/25 17:46 Freq: Status: Active Protocol: Document 01/26/25 18:31 LN (Rec: 01/26/25 18:49 LN [id number]) Discharge Planning Assessment Assigned Discharge CAROL Mendez [facility] Maintenance Technician Provider DOMINGO Moyer at [facility] Insurance BS Insurance Comment Medicare DPOA/Assigned Daughter/ Telma Neighbors Designee Name Contact Information [phone] Advance Directives? No Advance Directives No on File History Provided By Patient,Family Member,Medical Record Has Patient been No admitted in last 30 days? Prior Living Group Home Facility Arrangements Household Members none Type of Public Transportation transporation used prior to admit Facility Name [facility] Admitted From: Independent with ADL Yes 's Is patient alert and Yes oriented? Comment Patient's facility makes patient's meals and assists with cleaning. Comment Patient's preference is to return to [facility], patient is open to HH or SNF at [facility] if recommended.
[2025-01-26] MEDS: MORPHINE 2 MG/ML INJ IV (20:45)
[2025-01-26] MEDS: SODIUM CHLORIDE 0.45% 1,000 ML 100 ML IV (21:36)
[2025-01-26] MEDS: MORPHINE 4 MG/ML INJ 3 MG IV (23:49)
[2025-01-27] VITALS (37 sets, daily range): BP systolic 88–115; BP diastolic 44–70; PULSE 16–104; RESP 16–96; TEMP 35.6–36.7; O2SAT 3–97; BMI 30.7; BMI 32.0
--- NOTE | 2025-01-27 | DI.RAD.S_ITS ---
PROCEDURE: XR HIP W PEL IF DONE LT 2V INDICATIONS: POST OP TECHNIQUE: AP pelvis and lateral view of the hip acquired. COMPARISON: [facility], [facility], XR PELVIS 1-2V, 01/26/2025, 16:41. FINDINGS: Bones: Patient is status post left hip arthroplasty, with hardware components in expected positions. The hip joint appears congruent. The visualized bony structures appear intact. Degenerative changes can be seen of the right hip as well as the lower lumbar spine. Soft tissues: Overlying postoperative changes are noted. No suspicious soft tissue densities. IMPRESSION: Expected post-operative appearance of a hip arthroplasty. Dictated by: Marky Alcantara M.D. on 01/27/2025 at 11:24 Approved by: Marky Alcantara M.D. on 01/27/2025 at 11:25
[2025-01-27] MEDS: ACETAMINOPHEN 325 MG TABLET 650 MG PO (00:37)
--- NOTE | 2025-01-27 01:20 | PC.NURSE ---
pt uses Cpap at home for sleep apnea but doesn't like to use machine and didnt want to bring it to hospital, pt occasionally has decrease in sat while sleeping to high 80's lasting less than a minute in length before sats return to normal. On multiple occassions encouraged pt to be put on O2 but pt refused. when mentioned to patient the alarm would continue to chime when sat decreases, reports the alarm beeping does not bother him at all.
--- NOTE | 2025-01-27 01:26 | PC.NURSE ---
this nurse placed alovil dressing on skin tear of left elbow for pt also changed brief and checked skin. skin dry and intact
--- NOTE | 2025-01-27 03:53 | PC.NURSE ---
Pt given ice packs intermittently.
--- NOTE | 2025-01-27 04:00 | PC.NURSE ---
Patient is pending surgery this morning 01/27/25. Will be bedbound immobile until otherwise stated.
[2025-01-27 06:31] LABS: Add Manual Diff / Slide Review NO; Hematocrit 38.1 % (41-53); Hemoglobin 13.0 g/dL (13.5-17.5); Lymphocytes Absolute Auto 500 /uL (1100-4500); Mean Corpuscular HGB Conc 34.2 % (30-36); Mean Corpuscular Hemoglobin 32.6 PG (26-34); Mean Corpuscular Volume 95.3 fL (80-100); Platelet Count 193 X10^3/uL (150-400)
--- NOTE | 2025-01-27 08:21 | EKG_ITS ---
[place] [id number] [place] [id number] Test Date: 2025-01-27 Pat Name: Henri Weaver Department: [facility] Room: 90D Gender: Male Physical Therapist Assistant: PANDA : 1935 Requested By: Order Number: [id number] Reading MD: Nigel Dang Measurements Intervals [place] Rate: 85 P: [place]: QRS: 61 QRSD: 122 T: -40 QT: 424 QTc: 504 Interpretive Statements Undetermined rhythm Right bundle branch block T wave abnormality, consider lateral ischemia Electronically Signed On 01-29-2025 16:54:56 PDT by Nigel Dang
--- NOTE | 2025-01-27 08:54 | PT-IP ANOTE ---
PT eval order received. Pt s/p with L hip fracture and plans to have surgery today. will d/c PT eval order and will await for new orders after surgery for pt's precautions and weight bearing status.
[2025-01-27] MEDS: LACTATED RINGERS 1,000 ML 42 ML IV ×2 (08:55→10:35)
[2025-01-27] MEDS: TRANEXAMIC ACID 1,000 MG in SODIUM CHLORIDE 0.9% 100 ML 200 MG IV ×2 (09:34→10:42)
--- NOTE | 2025-01-27 09:57 | SUR.OPER ---
Left Lateral with hip entry level buyer placed by surgeon and PA. Head on pillow, gel axillary roll in place, bottom leg bent with gel pad under knee to foot, upper leg straight and supported with pillows. Upper arm supported by pillows and secured over bottom arm to padded arm board. Tape over blanket lower legs. Surgeon confirmed positoning. Whiting stand with gel pad utilized to support left leg for closure.
[2025-01-27] MEDS: ACETAMINOPHEN IV 1,000 MG/100 ML VIAL 400 MG IV (10:59)
--- NOTE | 2025-01-27 11:24 | PM.OP.1 ---
Operative Date/Time/Diagnoses Date of procedure: 01/27/25 Time of procedure: 11:24 Pre-op diagnosis: Left hip fracture Post-op diagnosis: same Procedure & Clinicians Procedure: Left hip hemiarthroplasty for femoral neck fracture (CPT - 52165) Partial excision bone from left femur (CPT - 51888) Same procedure(s) as scheduled: Yes Indications: Left femoral neck fracture Surgeon: Arie Rivas Senior Ui Web Developer: Radha Khanna Click Yes if Unassisted: No Anesthesia Type: General Operative Notes Findings: Displaced left femoral neck fracture Closure Type: primary Specimen(s): none sent Prosthetic devices, grafts, tissues, transplants, or devices: [employer] Polarstem Size 1 collar cone 05/06 REF [id number] Lot [id number] [employer] 05/06 Taper femoral head 28mm OD +12 REF [id number] Lot [id number] [employer] Tandem bipolar 28mm ID 50mm OD Ref [id number] Lot [id number] Applied: catheter Estimated Blood Loss (mL): 250 Blood products transfused: none Procedure in detail: Patient has sustained a femoral neck fracture of his left hip during a ground level fall yesterday. He was seen in emergency room and diagnosis was confirmed with x-ray. Management options were discussed including nonoperative and operative care. He elected to move forward with hemiarthroplasty of the left hip. Risks were discussed with him in the emergency room including, but not limited to: Bleeding, infection, drug reactions, neurovascular injury, incomplete pain relief, stiffness, arthritis, periprosthetic infection, periprosthetic fracture, DVT, PE, and . Patient voiced understanding acceptance of the risks. He elected to move forward with surgery. He was brought to the holding area and the surgical site was confirmed and marked. He was then taken to the operating room. General anesthesia was induced and the airway was secured. He was transferred to the operating table and placed into the right lateral decubitus position with an axillary roll and all bony prominences well padded. Antibiotics were delivered via IV. 1 g of TXA was also administered. The left lower extremity was then prepped with ChloraPrep and draped out in the usual sterile fashion. The surgical incision was marked out over the lateral aspect of the proximal femur curving posterior superiorly. A surgical time-out was performed. Skin was then sharply incised and dissection was carried down to the tensor fascia using Bovie cautery. The tensor fascia was then incised and extended distally and proximally, splitting of the fibers of the gluteus mariangel as it blended proximally. This exposed the posterolateral aspect of the femur and the short external rotators. The greater trochanter bursa and excess soft tissues were dissected away from the short external rotators to expose them. A Cobra retractor was placed underneath the gluteus medius and minimus muscles to expose the short external rotators. Piriformis was then released with Bovie as was the remaining external rotators. These were then tagged for later repair using a 2. Fiber wires in the piriformis and short external rotators. This exposed the capsule deep. Capsule was then incised using Bovie cautery in a T-shaped fashion and the corners were tagged with 0 Ethibond sutures. The fracture was then identified and the femoral neck was exposed. Homans were placed both proximally and distally on the femoral neck to allow proper exposure. A broach was used as a template to help gauge the appropriate angle for the neck cut. Oscillating saw was then used to cut the femoral neck in about 10? of anteversion. The neck fragment was then removed using Sánchez forceps. The femoral head was then easily extracted using a corkscrew. Small bony fragments were removed with rongeur. A box press operator was used to open up the proximal portion of the femur a canal finer was then used to find the proper trajectory for the canal. Broaches were then used to broach the proximal femur. A size 1 broach was found to have good fit and fill with excellent stability. The trials were then assembled and several series of trials were performed to identify the optimal tissue tension and stability. The broach was then removed. The hip joint and femoral canal were irrigated. The final Press-Fit component was inserted and impacted. Trials were again used to assess the proper tissue tension and final bipolar head components were assembled and then impacted onto the Craig taper. Stability was again assessed and the hip was found to be stable through a physiologic range of motion. A one-to-one mixture of Exparel and 0.25% Marcaine without epinephrine was then infiltrated into the capsule. The wound was again irrigated. The capsule was then closed with 2. FiberWire interrupted sutures. The lateral edge of the capsule was repaired down through drill holes into the greater trochanter as was the external rotators as well. The Exparel mixture was then infiltrated into the tensor fascial layer, and this was repaired with interrupted 0 Vicryl sutures. The subcutaneous tissue was then infiltrated with the remaining Exparel mixture. Several deep sutures were placed in the fat tissue followed by 3-0 Vicryl sutures in the dermis followed by 4-0 running subcuticular Monocryl suture to close the skin. The incision was then dressed with Dermabond, Telfa and Tegaderm dressings. General anesthesia was reversed successfully without complication patient was taken to the recovery room in stable condition. Complications: none Post-operative Condition: stable Disposition: PACU Plan for aftercare: Patient may weightbear as tolerated on the left lower extremity at this time. Recommend therapy consults to work on disposition planning. Begin Lovenox tomorrow for DVT prophylaxis. Patient to be admitted to the hospitalist service.
--- NOTE | 2025-01-27 11:31 | P.CONS_ITS ---
History of Present Illness Consult details Date Patient Seen: 01/27/25 Time Patient Seen: 13:08 Chief complaint: GLF Left Hip Reason for consult: Medical management Narrative: 89-year-old man under the primary care of DOMINGO Puga and cardiology care of Dr. Fritz Nava was picking a pill up off the floor of his apartment yesterday when he fell on the floor and experienced immediate hip pain. He was seen in the ER and diagnosed with a left intertrochanteric hip fracture and underwent operative repair this morning. He states a history of coronary disease s/p stenting and atrial fibrillation s/p Watchman device, as well as chronic kidney disease followed by nephrology. He is seen postoperatively denying chest pain, shortness for breath or recent cardiac symptoms. Meds Home Medications and Allergies Home Medications ?Medication ?Instructions ?Recorded ?Confirmed ?Type hydrocodone 5 mg-acetaminophen 325 1 tab PO Q6H PRN pa in #10 tabs 11/28/22 01/27/25 Rx mg tablet cinacalcet 30 mg tablet 30 mg PO DAILY 01/27/2511/15 History lisinopril 5 mg tablet 5 mg PO DAILY 01/27/2501/27 History metoprolol succinate 25 mg 25 mg PO DAILY 01/27/2511/15 History tablet,extended release 24 hr potassium chloride 10 mEq 10 meq PO DAILY 01/27/2511/15 History tablet,extended release(part/cryst) spironolactone 25 mg tablet PO 01/27/25 History torsemide 20 mg tablet mg PO BID 01/27/25 History Allergies Allergy/AdvReac Type Severity Reaction Status Date / Time No Known Drug Allergies Allergy Verified 01/27/25 09:00 Exam Vital Signs (past 8 hours): - 01/27/25 03:53 01/27/25 03:53 01/27/25 03:59 Temperature Pulse Rate 79 77 Respiratory Rate Blood Pressure 113/66 Pulse Oximetry 93 93 Oxygen Delivery Method Room Air 01/27/25 04:00 01/27/25 04:00 01/27/25 04:30 Temperature Pulse Rate 85 85 Respiratory Rate Blood Pressure 105/58 L Pulse Oximetry 93 92 Oxygen Delivery Method 01/27/25 05:00 01/27/25 05:30 01/27/25 06:00 Temperature Pulse Rate 80 81 79 Respiratory Rate Blood Pressure Pulse Oximetry 90 L 91 94 Oxygen Delivery Method Room Air 01/27/25 06:30 01/27/25 07:00 01/27/25 07:30 Temperature Pulse Rate 82 75 80 Respiratory Rate Blood Pressure Pulse Oximetry 91 97 93 Oxygen Delivery Method 01/27/25 08:00 01/27/25 08:00 01/27/25 09:00 Temperature 97.6 F Pulse Rate 80 88 Respiratory Rate 16 Blood Pressure 115/63 108/70 Pulse Oximetry 93 96 Oxygen Delivery Method Room Air Oxygen Delivery Method Room Air Narrative Exam Narrative: GENERAL: This is a well-nourished, well-developed patient, in no apparent distress. HEAD: Atraumatic. Normocephalic. No temporal or scalp tenderness. EYES: Pupils equal round and reactive. Extraocular motions intact. No scleral icterus. No injection or drainage. ENT: Mucous membranes pink and moist. NECK: Trachea midline. No JVD, bruits or lymphadenopathy. Supple, nontender, no meningeal signs. CARDIOVASCULAR: Regular rate and rhythm without murmurs, gallops, or rubs. RESPIRATORY: Clear to auscultation. GASTROINTESTINAL: Abdomen soft, non-tender, nondistended. EXTREMITIES: No clubbing, cyanosis, or edema. MUSCULOSKELETAL: Left hip bandage in place, clean, dry and intact. NEUROLOGIC: Alert, oriented, speech fluent, full upper and lower motor strength, no focal deficits evident. DERMATOLOGIC: No rashes or skin lesions. Objective ECG Impression: EKG 01/27/2025: Sinus rhythm at 85bpm, RBBB, lateral T inversion Imaging *: Radiologist's impression: Pelvis xray 01/26/2025: Finding is concerning for acute displaced left femoral neck fracture. Please correlate with CT of pelvis findings from the same day. Pelvis CT 01/26/2025: Comminuted moderately displaced and angulated left subcapital hip fracture. Labs 01/27/25 06:25 01/26/25 14:37 Labs: Laboratory Results - last 24 hr 01/26/25 01/27/25 14:37 06:25 WBC 11.3 H 14.0 H RBC 4.57 4.00 L Hgb 15.0 13.0 L Hct 43.6 38.1 L MCV 95.4 95.3 MCH 32.8 32.6 MCHC 34.4 34.2 RDW 13.8 13.7 Plt Count 216 193 Neut % (Auto) 89.5 H 87.5 H Lymph % (Auto) 3.5 L 3.9 L [place] % (Auto) 5.8 7.6 Eos % (Auto) 0.6 L 0.7 L Baso % (Auto) 0.6 0.3 Neut # (Auto) 89623 H 07467 H Lymph # (Auto) 400 L 500 L [place] # (Auto) 700 1100 H Eos # (Auto) 100 100 Baso # (Auto) 100 0 Sodium 137 Potassium 4.1 Chloride 102 Carbon Dioxide 24 BUN 41 H Creatinine 1.81 H Estimated GFR 36 L BUN/Creatinine Ratio 22.7 H Glucose 102 H Calcium 10.1 Total Bilirubin 0.5 AST 26 ALT 20 Alkaline Phosphatase 70 Total Protein 6.9 Albumin 4.4 Globulin 2.5 Albumin/Globulin Ratio 1.8 [facility] Medical History Chronic kidney disease (CKD) Coronary artery disease Essential hypertension Mixed hyperlipidemia Social History details: Lives alone at [facility], daughter lives on [facility] household members: none Tobacco & Substance Use Smoking Status: Former smoker Assessment & Plan Assessment & Plan narrative: 1. Ground level fall with left intertrochanteric hip fracture, likely pathologic due to underlying osteoporosis. 2. Coronary artery disease. 3. Hypertension. 4. Chronic kidney disease. Plan: * Admit to inpatient status * Postoperative care per Orthopedics and Physical therapy * Continue routine medications * Follow postoperatively on telemetry with cardiac enzymes * He will likely require SNF placement at discharge for therapy services DVT prophylaxis: Subcutaneous enoxaparin Code status: Do not resuscitate. The patient clearly states his medical wish and states his daughter is his surrogate decision maker. Thank you for consulting the hospitalist service on this delightful patient. We will follow with you during his hospitalization. PROFEE Charge Codes Inpatient or Observation consultation: [id number]
--- NOTE | 2025-01-27 11:58 | SUR.PHASEI ---
Patient awake and alert; following all commands; denies any pain or nausea; vss. Drinking juice and swallowing without difficulty.
[2025-01-27] MEDS: LACTATED RINGERS 1,000 ML 100 ML IV (14:31)
[2025-01-27 14:32] LABS: Add Manual Diff / Slide Review NO; Hematocrit 37.3 % (41-53); Hemoglobin 12.7 g/dL (13.5-17.5); Lymphocytes Absolute Auto 300 /uL (1100-4500); Mean Corpuscular HGB Conc 33.9 % (30-36); Mean Corpuscular Hemoglobin 33.0 PG (26-34); Mean Corpuscular Volume 97.4 fL (80-100); Platelet Count 173 X10^3/uL (150-400)
[2025-01-27 14:38] LABS: Blood Urea Nitrogen 35 mg/dL (9-20); Calcium 9.0 mg/dL (8.4-10.2); Carbon Dioxide 20 mmol/L (22-32); Chloride 100 mmol/L (98-107); Estimated Glomerular Filt Rate 41 mL/min (>60); Glucose 176 mg/dL (70-99); HEMOLYSIS 24 (0-50); Potassium 4.4 mmol/L (3.4-5.1); Sodium 133 mmol/L (137-145)
[2025-01-27 14:50] LABS: Troponin I 0.037 ng/mL (0.01-0.034)
--- NOTE | 2025-01-27 16:15 | PT.IIE ---
Current Diagnoses Fracture of unspecified part of neck of left femur, initial encounter for closed fracture (01/26/25) Surgery Performed Operation Date: 01/27/25 09:00 Actual Procedures p Hip Hemiarthroplasty(Left) - Arie Rivas MD Medical History (Last Reviewed 01/27/25 @ 13:29 by Alfredito Moore MD) Chronic kidney disease (CKD) Coronary artery disease Essential hypertension Mixed hyperlipidemia Physical Therapy Inpatient Evaluation/Re-Eval M1 PT/OT-IP Prior Functional Status Start: 01/27/25 18:24 Freq: NEEDED Status: Active Protocol: Document 01/27/25 16:15 AB (Rec: 01/27/25 18:36 AB Desktop) Medical Review Prior Functional Status Medical History Yes Reviewed Communication able to make needs known Mobility and Gait pt stated that he was independent with all mobilities and ambulation without AD Social History Household Members none Living Arrangements Jail Facility Number of Floors ( One Floor Floors) Number of Stairs To pt lives at [facility] Enter/Railing? no steps to enter Home Environment Standard Height Toilet,Walk in Shower Home Equipment Front Wheel Walker,Grab Bars Near Toilet,Grab Bars In Shower Additional Social daughter stated that she has a FWW that the pt can use History Comment M2 PT-IP Current Condition Start: 01/27/25 18:24 Freq: NEEDED Status: Active Protocol: Document 01/27/25 16:15 AB (Rec: 01/27/25 18:36 AB Desktop) Physical Therapy Current Condition Current Condition Evaluation Date 01/27/25 Treatment Diagnosis L hip fx s/p L hip hemiarthroplasty; difficulty in walking Onset Date 01/26/25 M3 PT-IP Subjective Start: 01/27/25 18:24 Freq: NEEDED Status: Active Protocol: Document 01/27/25 16:15 AB (Rec: 01/27/25 18:36 AB Desktop) Subjective Physical Therapy Visit Type Type Initial Evaluation Visit Start Time 16:15 Visit Stop Time 17:00 Number of CORRECTIONAL OFFICER Visits 0 Physical Therapy Visit Comments Patient Comments agreeable to do PT Therapy Pain Assessment Pain Present Pain Present Denied Pain M4 PT-IP Mobility and Gait Start: 01/27/25 18:24 Freq: NEEDED Status: Active Protocol: Document 01/27/25 16:15 AB (Rec: 01/27/25 18:36 AB Desktop) PT-Bed Mobility Assessment Supine to Sit Supine to Sit Minimal Assistance Sit to Supine Sit to Supine Maximum Assistance,1 Person Assistance,Head of Bed Elevated PT-Transfer Assessment Sit to and From Stand Sit to and from Maximum Assistance,2 Person Assistance,Use of Upper Stand Extremities Equipment Transfer Assistive Gait Belt,Front Wheeled Walker Device Orthotic/Prosthetic No Devices or Brace: Comments Mobility Comments pt in bed and daughter in room. pt agreed to do PT. obtained PLOF and home set up. post-op folder provided and reviewed contents. educated pt on L hip posterior precautions. BP supine: 95/50. completed supine to sit min A and max cues. able to sit on EOB CGA. no c/o dizziness. sit to stand 91/50. unable to stand on first attempt despite max A provided. NAC in to assist . pt completed sit to stand again max A x 2 and max cues. pt ambulated ~ 12 ft using FWW mod A and cues and sat back on chair. requested to just lay back in bed. sit to supine max A and max cues to elevated LE up in bed. positioned pt in bed. set up pt for dinner. call light and table placed within reach. BP checked: 84/42. nurse aware. pt agreed to go to SNF if needed. Gait Assessment Gait Gait Assistance Moderate Assistance Required: Distance (Feet) 12 Able to Maintain Yes Weight Bearing Status During Gait Assistive Devices Assistive Device Gait Belt,Front Wheeled Walker Orthotic/Prosthetic No Devices or Brace: Gait Deviations General Gait Pattern Antalgic,Decreased Stride Length,Decreased Feet Clearance,Step-to Gait Factors Limiting Gait Function Factors Limiting Decreased Activity Tolerance,Decreased Strength, Gait Function Difficulty Following Directions,Limited Range of Motion ,Pain,Poor Balance,Poor Safety Awareness PT-Balance Assessment Sitting Balance and Reactions Static Sitting Good Balance Ability Dynamic Sitting Fair Balance Ability Standing Balance and Reactions Static Standing Poor Balance Ability Dynamic Standing Poor Balance Ability Device Used FWW M5 PT-IP Objective Assessments Start: 01/27/25 18:24 Freq: NEEDED Status: Active Protocol: Document 01/27/25 16:15 AB (Rec: 01/27/25 18:36 AB Desktop) Orientation Orientation/Cognition Level of Alertness Alert Orientation Name,Place,Situation Language Function Hard of Hearing Ability Safety Awareness Decreased Safety Awareness Memory Description Short Term Impaired Strength Lower Extremity Strength Assessment Left Impaired Hip 3-/5 Knee 3+/5 Muscle Tone Muscle Tone WNL Yes M6 PT-IP Treatment Start: 01/27/25 18:24 Freq: NEEDED Status: Active Protocol: Document 01/27/25 16:15 AB (Rec: 01/27/25 18:36 AB Desktop) Physical Therapy Treatment Education Education Provided Precautions,Weight Bearing Status,Post-Op Packet,Safety M7 PT-IP Assessment and Plan Start: 01/27/25 18:24 Freq: NEEDED Status: Active Protocol: Document 01/27/25 16:15 AB (Rec: 01/27/25 18:36 AB Desktop) PT Summary Assessment and Plan Potential Rehabilitation Fair Potential Status of Condition Evolving at Evaluation Summary Impairments Pain,ROM,Strength,Balance,Coordination,Sensation,Tone, Cognition,Bed Mobility,Transfers,Gait,Activity Tolerance Assessment Summary pt is an 89 y/o M who had a fall and sustain a L hip fracture. Pt underwent R hip hemiarthroplasty this morning. pt has R hip posterior precautions and is WBAT . pt requiring min to max A for bed mobility, max A x 2 for sit to stand and able to ambulate using FWW mod A and cues. pt will require 24/7 assist at this time and will benefit from SNF rehab. will continue to assess progress. Goals Bed Mobility Goal Standby Assistance Transfer Goal Contact Guard Assistance,Front Wheeled Walker Gait Goal Contact Guard Assistance,Front Wheel Walker Gait Distance 100 Other Goals improve bed mobility, transfers, ambulation using FWW ~ 150 ft SBA Days to Meet Goals 10 Frequency of Treatment Frequency Of Twice a Day Treatment Treatment Plan Physical Therapy Bed Mobility Training,Transfer Training,Gait Training, Treatment Plan Therapeutic Exercise,Balance Retraining,Post Op Education,Discharge Planning,Hot or Cold Pack, Neuromuscular Re-ed,Coordination Retraining,Manual Therapy Precautions Posterior Hip No Hip Flexion > 90 degrees,No Hip Internal Rotation,No Precautions Hip Adduction Weight Bearing Status Weight Bearing Weight Bear as Tolerated Status Allowed Weight LLE WBAT Bearing Amount ( enter % or #) (%) Recommendations To Nursing Amount of Assist 2 Person Assist Needed Discharge Recommendations PT Discharge SNF Rehab Recommendations Transportation Needs Wheelchair/Cabulance at Discharge - PT assist 2
--- NOTE | 2025-01-27 19:14 | PC.NURSE ---
Pt arrived from ED at 1255, A&Ox4, hypotensive but otherwise VSS on 2L NC. No c/o pain. Gauze dressing to L posterior hip c/d/i. Lungs CTA, bowel sounds present, CMS+ bilaterally throughout. Pt oriented to room and call light. Bed in low position, call light within reach, bed alarm activated, SCDs on.
[2025-01-28] VITALS (7 sets, daily range): BP systolic 82–132; BP diastolic 49–68; PULSE 85–110; RESP 16–24; TEMP 36.2–37.1; O2SAT 93–96
[2025-01-28] MEDS: ACETAMINOPHEN 325 MG TABLET 650 MG PO (00:48)
[2025-01-28] MEDS: LACTATED RINGERS 1,000 ML 100 ML IV (01:34)
[2025-01-28 05:37] LABS: Add Manual Diff / Slide Review NO; Hematocrit 32.9 % (41-53); Hemoglobin 11.3 g/dL (13.5-17.5); Lymphocytes Absolute Auto 500 /uL (1100-4500); Mean Corpuscular HGB Conc 34.5 % (30-36); Mean Corpuscular Hemoglobin 33.0 PG (26-34); Mean Corpuscular Volume 95.7 fL (80-100); Platelet Count 170 X10^3/uL (150-400)
[2025-01-28 06:06] LABS: Troponin I 0.027 ng/mL (0.01-0.034)
[2025-01-28 06:17] LABS: Blood Urea Nitrogen 32 mg/dL (9-20); Calcium 9.2 mg/dL (8.4-10.2); Carbon Dioxide 23 mmol/L (22-32); Chloride 100 mmol/L (98-107); Estimated Glomerular Filt Rate 47 mL/min (>60); Glucose 114 mg/dL (70-99); HEMOLYSIS 23 (0-50); Potassium 4.0 mmol/L (3.4-5.1); Sodium 131 mmol/L (137-145)
--- NOTE | 2025-01-28 08:57 | PM.PN.IH.1 ---
Subjective Subjective Date Patient Seen: 01/28/25 Time Patient Seen: 08:50 Interval history: 01/27 consult: 89-year-old man under the primary care of DOMINGO Puga and cardiology care of Dr. Fritz Nava was picking a pill up off the floor of his apartment yesterday when he fell on the floor and experienced immediate hip pain. He was seen in the ER and diagnosed with a left intertrochanteric hip fracture and underwent operative repair this morning. He states a history of coronary disease s/p stenting and atrial fibrillation s/p Watchman device, as well as chronic kidney disease followed by nephrology. He is seen postoperatively denying chest pain, shortness for breath or recent cardiac symptoms. Interval history: 01/28: The patient is noted to be orthostatic this morning with blood pressure falling from 116 systolic to 85 with standing and feeling mildly lightheaded. Physical therapy is put on hold. He denies chest pain or shortness of breath. He states he is feeling better today. Exam Vital Signs (past 8 hours): - 01/28/25 03:08 Temperature 97.2 F L Pulse Rate 90 Respiratory Rate 19 Blood Pressure 103/54 L Pulse Oximetry 96 Oxygen Flow Rate 0 Oxygen Delivery Method Room Air Oxygen Flow Rate 0 Narrative Exam Narrative: GENERAL: This is a well-nourished, well-developed patient, in no apparent distress. EYES: Pupils equal round and reactive. Extraocular motions intact. No scleral icterus. No injection or drainage. ENT: Mucous membranes pink and moist. NECK: Trachea midline. No JVD, bruits or lymphadenopathy. Supple, nontender, no meningeal signs. CARDIOVASCULAR: Regular rate and rhythm without murmurs, gallops, or rubs. RESPIRATORY: Clear to auscultation. GASTROINTESTINAL: Abdomen soft, non-tender, nondistended. EXTREMITIES: No clubbing, cyanosis, or edema. MUSCULOSKELETAL: Left hip bandage in place, clean, dry and intact. NEUROLOGIC: Alert, oriented, speech fluent, full upper and lower motor strength, no focal deficits evident. DERMATOLOGIC: No rashes or skin lesions. Objective ECG Impression: EKG 01/27/2025: Sinus rhythm at 85bpm, RBBB, lateral T inversion Imaging *: Radiologist's impression: Pelvis xray 01/26/2025: Finding is concerning for acute displaced left femoral neck fracture. Please correlate with CT of pelvis findings from the same day. Pelvis CT 01/26/2025: Comminuted moderately displaced and angulated left subcapital hip fracture. Hip xray 01/27/2025: Expected post-operative appearance of a hip arthroplasty. Labs 01/28/25 05:03 01/28/25 05:03 Labs: Laboratory Results - last 24 hr 01/27/25 01/28/25 14:18 05:03 WBC 18.4 H 17.2 H RBC 3.83 L 3.44 L Hgb 12.7 L 11.3 L Hct 37.3 L 32.9 L MCV 97.4 95.7 MCH 33.0 33.0 MCHC 33.9 34.5 RDW 13.8 13.6 Plt Count 173 170 Neut % (Auto) 94.0 H 89.4 H Lymph % (Auto) 1.8 L 2.8 L [place] % (Auto) 4.0 7.5 Eos % (Auto) 0.0 L 0.1 L Baso % (Auto) 0.2 0.2 Neut # (Auto) 32433 H 33390 H Lymph # (Auto) 300 L 500 L [place] # (Auto) 700 1300 H Eos # (Auto) 0 0 Baso # (Auto) 0 0 Sodium 133 L 131 L Potassium 4.4 4.0 Chloride 100 100 Carbon Dioxide 20 L 23 BUN 35 H 32 H Creatinine 1.62 H 1.43 H Estimated GFR 41 L 47 L BUN/Creatinine Ratio 21.6 22.4 H Glucose 176 H 114 H Calcium 9.0 9.2 Troponin I 0.037 H 0.027 PFSH Medical History Chronic kidney disease (CKD) Coronary artery disease Essential hypertension Mixed hyperlipidemia Social History details: Lives alone at [facility], daughter lives on [facility] household members: none Smoking Status: Former smoker Assessment & Plan Assessment & Plan narrative: 1. Ground level fall with left intertrochanteric hip fracture, likely pathologic due to underlying osteoporosis , status post left hemiarthroplasty 01/27/2025. 2. Mild postoperative anemia due to surgical and hip fracture blood loss. 3. Coronary artery disease. Clinically stable. Asymptomatic. Borderline elevated troponin noted immediately postoperatively subsequently normalized. No evidence of non STEMI. 3. Hypertension. Hold BP meds due to low blood pressure. 4. Chronic kidney disease. 5. Orthostatic hypotension , likely volume depletion. Encouraged push fluids. No worrisome process evident. Plan: Inpatient status Postoperative care per Orthopedics and Physical therapy Continue routine medications, holding BP meds today Encourage fluid intake Follow postoperatively on telemetry He will likely require SNF placement at discharge for therapy services DVT prophylaxis: Subcutaneous enoxaparin Code status: Do not resuscitate. The patient clearly states his medical wish and states his daughter is his surrogate decision maker. Thank you for consulting the hospitalist service on this delightful patient. We will follow with you during his hospitalization. PROFEE Commissioned Fire Officer Document charge(s): No Charge Codes Subsequent inpatient/observation care: [id number]
--- NOTE | 2025-01-28 08:58 | PT.IPTN ---
Current Diagnoses Fracture of unspecified part of neck of left femur, initial encounter for closed fracture (01/26/25) Surgery Performed Operation Date: 01/27/25 09:00 Actual Procedures p Hip Hemiarthroplasty(Left) - Arie Rivas MD Physical Therapy Treatment Note M2 PT-IP Current Condition Start: 01/27/25 18:24 Freq: NEEDED Status: Active Protocol: Document 01/28/25 08:25 DCW (Rec: 01/28/25 08:58 DCW [id number]) Physical Therapy Current Condition Current Condition Evaluation Date 01/27/25 Treatment Diagnosis L hip fx s/p L hip hemiarthroplasty; difficulty in walking Onset Date 01/26/25 M3 PT-IP Subjective Start: 01/27/25 18:24 Freq: NEEDED Status: Active Protocol: Document 01/28/25 08:25 DCW (Rec: 01/28/25 08:58 DCW [id number]) Subjective Physical Therapy Visit Type Type Treatment Note Visit Start Time 08:25 Visit Stop Time 08:50 Number of AUTOMATIC WASHER MECHANIC Visits 0 Physical Therapy Visit Comments Patient Comments Pt lying in bed, agreeable to PT M4 PT-IP Mobility and Gait Start: 01/27/25 18:24 Freq: NEEDED Status: Active Protocol: Document 01/28/25 08:25 DCW (Rec: 01/28/25 08:58 DCW [id number]) PT-Bed Mobility Assessment Supine to Sit Supine to Sit Minimal Assistance Sit to Supine Sit to Supine Minimal Assistance,1 Person Assistance M5 PT-IP Objective Assessments Start: 01/27/25 18:24 Freq: NEEDED Status: Active Protocol: Document 01/27/25 16:15 AB (Rec: 01/27/25 18:36 AB Desktop) Orientation Orientation/Cognition Level of Alertness Alert Orientation Name,Place,Situation Language Function Hard of Hearing Ability Safety Awareness Decreased Safety Awareness Memory Description Short Term Impaired Strength Lower Extremity Strength Assessment Left Impaired Hip 3-/5 Knee 3+/5 Muscle Tone Muscle Tone WNL Yes M6 PT-IP Treatment Start: 01/27/25 18:24 Freq: NEEDED Status: Active Protocol: Document 01/27/25 16:15 AB (Rec: 01/27/25 18:36 AB Desktop) Physical Therapy Treatment Education Education Provided Precautions,Weight Bearing Status,Post-Op Packet,Safety M7 PT-IP Assessment and Plan Start: 01/27/25 18:24 Freq: NEEDED Status: Active Protocol: Document 01/28/25 08:25 DCW (Rec: 01/28/25 08:58 DCW [id number]) PT Summary Assessment and Plan Summary Impairments Pain,ROM,Strength,Balance,Coordination,Sensation,Tone, Cognition,Bed Mobility,Transfers,Gait,Activity Tolerance Assessment Summary Pt agreeable to work with PT this morning. Noted minimal pain, felt he slept well. Supine BP was obtained, 116/53. Pt able to get to sitting EOB with Min Ax1 getting left leg off the bed. Upon sitting, BP had dropped to 85/52, after a two minute rest, BP again measured, this time 94/47. Determined to return to bed at this time, unsafe to perform standing. Pt once again able to sit->supine Min Ax1 with left leg getting up into the bad. Return to supine BP was 117/71. At this time, Dr Moore entered the room, discussed BPs, agreeable to wait for PT later in the day. Pt left in bed, with call button within reach, and Dr Moore in the room. Goals Bed Mobility Goal Standby Assistance Transfer Goal Contact Guard Assistance,Front Wheeled Walker Gait Goal Contact Guard Assistance,Front Wheel Walker Gait Distance 100 Other Goals improve bed mobility, transfers, ambulation using FWW ~ 150 ft SBA Days to Meet Goals 10 Frequency of Treatment Frequency Of Twice a Day Treatment Treatment Plan Physical Therapy Bed Mobility Training,Transfer Training,Gait Training, Treatment Plan Therapeutic Exercise,Balance Retraining,Post Op Education,Discharge Planning,Hot or Cold Pack, Neuromuscular Re-ed,Coordination Retraining,Manual Therapy Precautions Posterior Hip No Hip Flexion > 90 degrees,No Hip Internal Rotation,No Precautions Hip Adduction Weight Bearing Status Weight Bearing Weight Bear as Tolerated Status Allowed Weight LLE WBAT Bearing Amount ( enter % or #) (%) Recommendations To Nursing Amount of Assist 2 Person Assist Needed Discharge Recommendations PT Discharge SNF Rehab Recommendations Transportation Needs Wheelchair/Cabulance at Discharge - PT assist 1
--- NOTE | 2025-01-28 09:12 | P.PN_ITS ---
Subjective Subjective Date Patient Seen: 01/28/25 Time Patient Seen: 09:12 Interval history: Patient reports no significant problems overnight. He did get up with physical therapy and was a little hypotensive. Pain is controlled Exam Vital Signs (past 8 hours): - 01/28/25 03:08 01/28/25 08:00 Temperature 97.2 F L 97.2 F L Pulse Rate 90 87 Respiratory Rate 19 17 Blood Pressure 103/54 L 116/53 L Pulse Oximetry 96 94 Oxygen Flow Rate 0 Oxygen Delivery Method Room Air Oxygen Flow Rate 0 Narrative Exam Narrative: Left hip dressing is clean, dry, intact. Distal motor and sensory exams are intact. Objective Labs 01/28/25 05:03 01/28/25 05:03 Labs: Laboratory Results - last 24 hr 01/27/25 01/28/25 14:18 05:03 WBC 18.4 H 17.2 H RBC 3.83 L 3.44 L Hgb 12.7 L 11.3 L Hct 37.3 L 32.9 L MCV 97.4 95.7 MCH 33.0 33.0 MCHC 33.9 34.5 RDW 13.8 13.6 Plt Count 173 170 Neut % (Auto) 94.0 H 89.4 H Lymph % (Auto) 1.8 L 2.8 L [place] % (Auto) 4.0 7.5 Eos % (Auto) 0.0 L 0.1 L Baso % (Auto) 0.2 0.2 Neut # (Auto) 31599 H 81671 H Lymph # (Auto) 300 L 500 L [place] # (Auto) 700 1300 H Eos # (Auto) 0 0 Baso # (Auto) 0 0 Sodium 133 L 131 L Potassium 4.4 4.0 Chloride 100 100 Carbon Dioxide 20 L 23 BUN 35 H 32 H Creatinine 1.62 H 1.43 H Estimated GFR 41 L 47 L BUN/Creatinine Ratio 21.6 22.4 H Glucose 176 H 114 H Calcium 9.0 9.2 Troponin I 0.037 H 0.027 PFSH Medical History Chronic kidney disease (CKD) Coronary artery disease Essential hypertension Mixed hyperlipidemia Social History details: Lives alone at [facility], daughter lives on [facility] household members: none Smoking Status: Former smoker Assessment & Plan Assessment & Plan narrative: Postop day 1. From left hip hemiarthroplasty for femoral neck fracture, doing well. Complete 24 hour antibiotic coverage. DVT prophylaxis per primary team. Continue working with therapy. Weightbearing as tolerated on left lower extremity. Discontinue Xiao once appropriate. Discharge planning. Time-Based Coding :: [TOTAL MINUTES] spent with patient and on the chart (including review of chart, obtaining history, exam, reviewing outside data, placing orders, documenting exam and treatment plan, and counseling patient) on [DATE]. PROFEE Edge Molder Document charge(s): Yes Charge Codes Subsequent inpatient/observation care: [id number]
[2025-01-28] MEDS: ENOXAPARIN 40 MG/0.4 ML SYRINGE SUBCUT (09:20)
[2025-01-28] MEDS: METOPROLOL ER 25 MG TABLET PO (09:23)
[2025-01-28] MEDS: POTASSIUM CHLORIDE 10 MEQ TAB PO (09:24)
--- NOTE | 2025-01-28 11:09 | CM.DPNOTE ---
DCP Cont Therapy recommending SNF and patient agrees. Preference for [facility]. Emailed referral to October at ; included the following: face sheet, surgery and hospitalist consult notes, PT, PASRR, SIS Note. has bed available and will likely be able to accept Wednesday or Wednesday. PASRR done. Plan: Discharge anticipated over the next 24-48 hrs, to [facility] a van. Keep patient and daughter updated. ANNETTE
--- NOTE | 2025-01-28 13:15 | PT.IPTN ---
Current Diagnoses Fracture of unspecified part of neck of left femur, initial encounter for closed fracture (01/26/25) Surgery Performed Operation Date: 01/27/25 09:00 Actual Procedures p Hip Hemiarthroplasty(Left) - Arie Rivas MD Physical Therapy Treatment Note M2 PT-IP Current Condition Start: 01/27/25 18:24 Freq: NEEDED Status: Active Protocol: Document 01/28/25 12:32 DCW (Rec: 01/28/25 13:15 DCW [id number]) Physical Therapy Current Condition Current Condition Evaluation Date 01/27/25 Treatment Diagnosis L hip fx s/p L hip hemiarthroplasty; difficulty in walking Onset Date 01/26/25 M3 PT-IP Subjective Start: 01/27/25 18:24 Freq: NEEDED Status: Active Protocol: Document 01/28/25 12:32 DCW (Rec: 01/28/25 13:15 DCW [id number]) Subjective Physical Therapy Visit Type Visit Start Time 12:32 Visit Stop Time 13:03 Number of TRAUMA DIRECTOR Visits 0 Physical Therapy Visit Comments Patient Comments Pt notes he is feeling a bit better this afternoon, has finished lunch, would like to try to get up again. M4 PT-IP Mobility and Gait Start: 01/27/25 18:24 Freq: NEEDED Status: Active Protocol: Document 01/28/25 12:32 DCW (Rec: 01/28/25 13:15 DCW [id number]) PT-Bed Mobility Assessment Supine to Sit Supine to Sit Minimal Assistance Sit to Supine Sit to Supine Minimal Assistance,1 Person Assistance Scooting Scooting Up and Down Maximum Assistance in Bed PT-Transfer Assessment Sit to and From Stand Sit to and from Minimal Assistance,1 Person Assistance,Use of Upper Stand Extremities Equipment Transfer Assistive Gait Belt,Front Wheeled Walker Device Orthotic/Prosthetic No Devices or Brace: M5 PT-IP Objective Assessments Start: 01/27/25 18:24 Freq: NEEDED Status: Active Protocol: Document 01/27/25 16:15 AB (Rec: 01/27/25 18:36 AB Desktop) Orientation Orientation/Cognition Level of Alertness Alert Orientation Name,Place,Situation Language Function Hard of Hearing Ability Safety Awareness Decreased Safety Awareness Memory Description Short Term Impaired Strength Lower Extremity Strength Assessment Left Impaired Hip 3-/5 Knee 3+/5 Muscle Tone Muscle Tone WNL Yes M6 PT-IP Treatment Start: 01/27/25 18:24 Freq: NEEDED Status: Active Protocol: Document 01/27/25 16:15 AB (Rec: 01/27/25 18:36 AB Desktop) Physical Therapy Treatment Education Education Provided Precautions,Weight Bearing Status,Post-Op Packet,Safety M7 PT-IP Assessment and Plan Start: 01/27/25 18:24 Freq: NEEDED Status: Active Protocol: Document 01/28/25 12:32 DCW (Rec: 01/28/25 13:15 DCW [id number]) PT Summary Assessment and Plan Summary Impairments Pain,ROM,Strength,Balance,Coordination,Sensation,Tone, Cognition,Bed Mobility,Transfers,Gait,Activity Tolerance Assessment Summary Pt able to get from supine to seated EOB Min Ax1. BP supine 125/64, upon sitting, BP 140/56, pt began having productive cough after sitting. When ready, pt standing Min Ax1 /c FWW, BP dropped to 80/56. Immediately assisted pt to return to supine Min Ax1. RN came in at that time, two-person assist to help scoot pt up in bed. Supine BP measured at 132/60. Continue to attempt to get to stand and ambulate, may need more focus on supine exercises if he can tolerate. Goals Bed Mobility Goal Standby Assistance Transfer Goal Contact Guard Assistance,Front Wheeled Walker Gait Goal Contact Guard Assistance,Front Wheel Walker Gait Distance 100 Other Goals improve bed mobility, transfers, ambulation using FWW ~ 150 ft SBA Days to Meet Goals 10 Frequency of Treatment Frequency Of Twice a Day Treatment Treatment Plan Physical Therapy Bed Mobility Training,Transfer Training,Gait Training, Treatment Plan Therapeutic Exercise,Balance Retraining,Post Op Education,Discharge Planning,Hot or Cold Pack, Neuromuscular Re-ed,Coordination Retraining,Manual Therapy Precautions Posterior Hip No Hip Flexion > 90 degrees,No Hip Internal Rotation,No Precautions Hip Adduction Weight Bearing Status Weight Bearing Weight Bear as Tolerated Status Allowed Weight LLE WBAT Bearing Amount ( enter % or #) (%) Recommendations To Nursing Amount of Assist 2 Person Assist Needed Discharge Recommendations PT Discharge SNF Rehab Recommendations Transportation Needs Wheelchair/Cabulance at Discharge - PT assist 1
--- NOTE | 2025-01-28 17:06 | PC.NURSE ---
pt stood at bedside and up for dinner , moore and right hand iv out-pt sienna well. to commode with sba.
[2025-01-29] VITALS: BP 111/60; PULSE 90; RESP 24; TEMP 36.2; O2SAT 93
--- NOTE | 2025-01-29 02:00 | PC.NURSE ---
Received report from Alma Thompson RN.
--- NOTE | 2025-01-29 02:19 | DI.RAD.S_ITS ---
PROCEDURE: XR KUB INDICATIONS: abdominalmpain TECHNIQUE: One view of the abdomen acquired. COMPARISON: None. FINDINGS: Surgical changes and devices: There is prior left total hip arthroplasty. Surgical clips are also seen in epigastric region.. Bowel: Significant air distended bowel loops throughout abdomen is seen. No gross pneumoperitoneum. Soft tissues: No suspicious abdominal calcifications. Visualized solid organ contours appear normal in size. Bones: No suspicious bony lesions. IMPRESSION: Finding is suggestive of distal small bowel obstruction versus ileus. No gross pneumoperitoneum. Dictated by: Cortes Amador M.D. on 01/29/2025 at 8:10 Approved by: Cortes Amador M.D. on 01/29/2025 at 8:13
[2025-01-29 04:00] VITALS: BP 107/60; PULSE 93; RESP 22; TEMP 36.2; O2SAT 95
[2025-01-29 07:00] VITALS: O2SAT 97
[2025-01-29 08:00] VITALS: BP 108/62; PULSE 95; RESP 16; TEMP 36.1; O2SAT 97
--- NOTE | 2025-01-29 09:15 | PT.IPTN ---
Current Diagnoses Fracture of unspecified part of neck of left femur, initial encounter for closed fracture (01/26/25) Surgery Performed Operation Date: 01/27/25 09:00 Actual Procedures p Hip Hemiarthroplasty(Left) - Arie Rivas MD Physical Therapy Treatment Note M2 PT-IP Current Condition Start: 01/27/25 18:24 Freq: NEEDED Status: Active Protocol: Document 01/28/25 12:32 DCW (Rec: 01/28/25 13:15 DCW [id number]) Physical Therapy Current Condition Current Condition Evaluation Date 01/27/25 Treatment Diagnosis L hip fx s/p L hip hemiarthroplasty; difficulty in walking Onset Date 01/26/25 M3 PT-IP Subjective Start: 01/27/25 18:24 Freq: NEEDED Status: Active Protocol: Document 01/29/25 12:20 [facility] (Rec: 01/29/25 12:26 [facility] [id number]) Subjective Physical Therapy Visit Type Type Treatment Note Visit Start Time 08:48 Visit Stop Time 09:11 Number of PEOPLESOFT ANALYST Visits 0 Physical Therapy Visit Comments Patient Comments Pt agrees to get up Therapy Pain Assessment Pain When Pain Assessed During Mobility Pain Present Pain Present Pain Reported M4 PT-IP Mobility and Gait Start: 01/27/25 18:24 Freq: NEEDED Status: Active Protocol: Document 01/29/25 12:20 [facility] (Rec: 01/29/25 12:26 [facility] [id number]) PT-Bed Mobility Assessment Supine to Sit Supine to Sit Moderate Assistance Scooting Scooting to Edge of Contact Guard Assistance Bed PT-Transfer Assessment Sit to and From Stand Sit to and from Minimal Assistance,1 Person Assistance,Use of Upper Stand Extremities Equipment Transfer Assistive Gait Belt,Front Wheeled Walker Device Orthotic/Prosthetic No Devices or Brace: Comments Mobility Comments Pt requires cues for precautions. Remembers no flex past 90 but not other 2. He requires cues throughout mobility for 90 deg precautions. He is requires mod A for bed mobility from flat bed w/PT helping through UEs pulling. He sits at eOB indep. BP cuff tried 2 times but did not read in this position. Supine BP 129/71. Pt stood and BP tried on R arm and cuff failed and L arm got 91/43 with c/o mild lightheadedness. Pt transferred w/min A to chair and left with OT in room. Gait Assessment Gait Gait Assistance Minimum Assistance Required: Distance (Feet) 5 Able to Maintain Yes Weight Bearing Status During Gait Assistive Devices Assistive Device Gait Belt,Front Wheeled Walker Orthotic/Prosthetic No Devices or Brace: Gait Deviations General Gait Pattern Antalgic,Decreased Stride Length,Decreased Feet Clearance,Step-to Gait Factors Limiting Gait Function Factors Limiting Decreased Activity Tolerance,Decreased Strength, Gait Function Difficulty Following Directions,Limited Range of Motion ,Pain,Poor Balance,Poor Safety Awareness M5 PT-IP Objective Assessments Start: 01/27/25 18:24 Freq: NEEDED Status: Active Protocol: Document 01/27/25 16:15 AB (Rec: 01/27/25 18:36 AB Desktop) Orientation Orientation/Cognition Level of Alertness Alert Orientation Name,Place,Situation Language Function Hard of Hearing Ability Safety Awareness Decreased Safety Awareness Memory Description Short Term Impaired Strength Lower Extremity Strength Assessment Left Impaired Hip 3-/5 Knee 3+/5 Muscle Tone Muscle Tone WNL Yes M6 PT-IP Treatment Start: 01/27/25 18:24 Freq: NEEDED Status: Active Protocol: Document 01/27/25 16:15 AB (Rec: 01/27/25 18:36 AB Desktop) Physical Therapy Treatment Education Education Provided Precautions,Weight Bearing Status,Post-Op Packet,Safety M7 PT-IP Assessment and Plan Start: 01/27/25 18:24 Freq: NEEDED Status: Active Protocol: Document 01/29/25 12:20 [facility] (Rec: 01/29/25 12:26 [facility] [id number]) PT Summary Assessment and Plan Summary Impairments Pain,ROM,Strength,Balance,Coordination,Sensation,Tone, Cognition,Bed Mobility,Transfers,Gait,Activity Tolerance Assessment Summary Pt making good progress w/PT but limited by orthostatics with standing. He does feel lightheaded as he stands. He does well with standing extended w/SBA. He is able to transfer with min A. He would benefit from SNF prior to return home to improve function. Goals Bed Mobility Goal Standby Assistance Transfer Goal Contact Guard Assistance,Front Wheeled Walker Gait Goal Contact Guard Assistance,Front Wheel Walker Gait Distance 100 Other Goals improve bed mobility, transfers, ambulation using FWW ~ 150 ft SBA Days to Meet Goals 10 Frequency of Treatment Frequency Of Twice a Day Treatment Treatment Plan Physical Therapy Bed Mobility Training,Transfer Training,Gait Training, Treatment Plan Therapeutic Exercise,Balance Retraining,Post Op Education,Discharge Planning,Hot or Cold Pack, Neuromuscular Re-ed,Coordination Retraining,Manual Therapy Precautions Posterior Hip No Hip Flexion > 90 degrees,No Hip Internal Rotation,No Precautions Hip Adduction Weight Bearing Status Weight Bearing Weight Bear as Tolerated Status Allowed Weight LLE WBAT Bearing Amount ( enter % or #) (%) Recommendations To Nursing Amount of Assist 1 Person Assist Needed Discharge Recommendations PT Discharge SNF Rehab Recommendations Transportation Needs Wheelchair/Cabulance at Discharge - PT assist 1
--- NOTE | 2025-01-29 09:20 | OT.IP.EVAL ---
Current Diagnoses Fracture of unspecified part of neck of left femur, initial encounter for closed fracture (01/26/25) Surgery Performed Operation Date: 01/27/25 09:00 Actual Procedures p Hip Hemiarthroplasty(Left) - Arie Rivas MD Past Medical History (Last Reviewed 01/28/25 @ 09:00 by Alfredito Moore MD) Chronic kidney disease (CKD) Coronary artery disease Essential hypertension Mixed hyperlipidemia Occupational Therapy Inpatient Evaluation/Re-Eval M1 PT/OT-IP Prior Functional Status Start: 01/27/25 18:24 Freq: NEEDED Status: Active Protocol: Document 01/29/25 09:21 [facility] (Rec: 01/29/25 09:32 [facility] [id number]) Medical Review Prior Functional Status Medical History Yes Reviewed Communication able to make needs known Mobility and Gait pt stated that he was independent with all mobilities and ambulation without AD Activities of Daily Pt able to do all ADL and IADL needs prior. Living and IADL's Social History Household Members none Living Arrangements Usp Facility Number of Floors ( One Floor Floors) Number of Stairs To pt lives at [facility] Enter/Railing? no steps to enter Home Environment Standard Height Toilet,Walk in Shower Home Equipment Front Wheel Walker,Four Wheel Walker,Carbon Cutter,Grab Bars Near Toilet,Grab Bars In Shower Additional Social daughter stated that she has a FWW that the pt can use History Comment M2 OT-IP Current Condition Start: 01/29/25 09:21 Freq: Status: Active Protocol: Document 01/29/25 09:21 [facility] (Rec: 01/29/25 09:32 [facility] [id number]) Occupational Therapy Current Condition Current Condition Evaluation Date 01/29/25 Treatment Diagnosis L hip fx, S/P L KHALIF Diagnosis Onset Date 01/26/25 Post Operative Precautions Posterior Hip No Hip Flexion > 90 degrees,No Hip Internal Rotation,No Precautions Hip Adduction Weight Bearing Status Weight Bearing Weight Bear as Tolerated Status M3 OT- IP Subjective and Pain Start: 01/29/25 09:21 Freq: Status: Active Protocol: Document 01/29/25 09:21 [facility] (Rec: 01/29/25 09:32 [facility] [id number]) OT- Subjective Occupational Therapy Visit Type Type Initial Evaluation Visit Start Time 08:45 Visit Stop Time 09:20 Occupational Therapy Visit Comments Patient Comments Pt agreed to get up. Patient/Caregiver TO get better. Goals OT Pain Assessment Pain When Pain Assessed During Mobility Pain Present Pain Present Pain Reported Location left hip Description Aching M4 OT- IP ADL's Start: 01/29/25 09:21 Freq: Status: Active Protocol: Document 01/29/25 09:21 [facility] (Rec: 01/29/25 09:32 [facility] [id number]) OT [id number] General Evaluation Self-Feeding Ability Independent OT ADL-Grooming General Evaluation Grooming Ability Independent Comments OT Grooming Comments While seated. OT ADL-Oral Care General Eval Oral Care Ability Independent Comments Oral Care Comments WHile seated. OT ADL-Dressing General Eval Lower Body Dressing Maximum Assistance Ability Areas Needing Socks Assistance Comments OT Dressing Comments Educated will need to use LB dressing equipment now and dress the LLE first and take out last. OT ADL-Toileting Comments OT Toileting Pt has been using the urinal. Comments OT ADL-Bathing Comments OT Bathing Comments Pt will benefit from shower chair at home. M5 OT- IP IADL's Start: 01/29/25 09:21 Freq: Status: Active Protocol: Document 01/29/25 09:21 [facility] (Rec: 01/29/25 09:32 [facility] [id number]) OT-Instrumental Activities of Daily Living Home Safety Awareness Awareness of Need Good Awareness for Assistance at Home Ability to Problem Able to Problem Solve Solve Emergency Situations Medication Management Medication No Deficits Identified Management Money Management Money Management No Deficits Identified Meal Preparation Meal Preparation Caregiver Provides Assist Air Brake Mechanic Air Brake Mechanic Caregiver Provides Assist M6 OT- IP Functional Cognition Start: 01/29/25 09:21 Freq: Status: Active Protocol: Document 01/29/25 09:21 [facility] (Rec: 01/29/25 09:32 [facility] [id number]) Cognitive Factors Limiting Selfcare Function Cognitive Ability Level of Alertness Alert Patient Orientation Name,Age,Birthday,Month,Date,Year,Day of Week,Place, Situation Attention Span Capable of Focused Attention,Capable of Sustained Ability Attention Ability to Follow Able to Follow One Step Commands Commands Memory Description Short Term Impaired Cognitive Comments Cognitive Assessment Pt able to follow commands for ADL and mobility need. Comments VC to incorporate his hip precautions during needs. Pt able to recall 2 out of the 3 precautions. Pt will benefit from more practice and education of his hip precautions. OT- Vision and Hearing OT- Hearing Assessment OT- Hearing WFL Assessment OT- Vision Assessment Visual Acuity Glasses For Reading Visual Attentiveness WFL Occular Pursuits WFL M7 OT- IP Mobility and Balance Start: 01/29/25 09:21 Freq: Status: Active Protocol: Document 01/29/25 09:21 [facility] (Rec: 01/29/25 09:32 [facility] [id number]) OT- Bed Mobility Assessment Supine to Sit Supine to Sit Assist Moderate Assistance OT-Transfer Assessment Sit to and From Stand Sit to and from Minimal Assistance Stand Transfers Transfer Ability Minimal Assistance Technique Transfer Destination Bed,Chair Transfer Technique Stand Step Pivot Devices Transfer Assistive Gait Belt,Front Wheeled Walker Devices Comments Mobility Comments MODA to assist with his LLE and trunk to get to the edge of the bed. LEIA to stand to FWW and vc to push up from the bed to stand. BP supine 129/71, standing 91/ 43 and feeling a little nauseous . Pt transferred to the recliner LEIA and BP 127/62. Pt a little wheezy and coughing phlegm, nursing notified. OT- Balance Assessment Sitting Balance and Reactions Static Sitting Normal Balance Ability Dynamic Sitting Good Balance Ability Standing Balance and Reactions Static Standing Good Balance Ability Dynamic Standing Fair Balance Ability M8 OT- IP Objective Assessments Start: 01/29/25 09:21 Freq: Status: Active Protocol: Document 01/29/25 09:21 [facility] (Rec: 01/29/25 09:32 [facility] [id number]) OT Gross Range of Motion Upper Extremity Range of Motion Assessment Within Functional Limits OT Strength Upper Extremity Strength Assessment Within Functional Limits M9 OT- IP Assessment and Plan Start: 01/29/25 09:21 Freq: Status: Active Protocol: Document 01/29/25 09:21 [facility] (Rec: 01/29/25 09:32 [facility] [id number]) OT Summary Assessment and Plan Potential Rehabilitation Excellent Potential Analytic Complexity Low at Evaluation Summary OT Impairments Pain,Strength,Balance,Functional Mobility,Grooming, Dressing,Toileting,Bathing,Toilet Transfers,Shower Transfers,Activity Tolerance Progress Towards Progressing Toward Goals Goals Assessment Summary Pt low complexity and main barriers are pain, needing practice and continued education of his hip precautions and how to incorporate form his ADL and mobility needs . Pt able to transfer on OT eval and dropped while standing. Pt to go to skilled rehab when medically stable. Goals Dressing Goal Independent,Carbon Cutter,Sock Aid Toileting Goal Independent Bathing Goal Independent,Grab Bars,Hand Held Shower Sprayer,Long Handled Sponge or [place] Toilet Transfer Goal Independent Shower Transfer Goal Independent Days to Meet Goals 15 Frequency of Treatment Other frequency 5x/week Treatment Plan OT Treatment Plan ADL Training,Functional Mobility,Patient/Family Education,Discharge Planning Discharge Recommendations OT Discharge SNF Rehab Recommendations Transportation Needs Wheelchair/Cabulance at Discharge
[2025-01-29] MEDS: ENOXAPARIN 40 MG/0.4 ML SYRINGE SUBCUT (09:39)
--- NOTE | 2025-01-29 10:11 | P.PN_ITS ---
Subjective Subjective Date Patient Seen: 01/29/25 Time Patient Seen: 10:11 Interval history: Patient reports having loose bowel movements overnight as well some nausea. He is doing a little better this morning. He has been up with therapy. He is sitting in a chair this morning. Pain is fairly well controlled. He has no significant discomfort at rest but has some discomfort when he is moving about. Exam Vital Signs (past 8 hours): - 01/29/25 04:00 01/29/25 08:00 Temperature 97.1 F L 97 F L Pulse Rate 93 H 95 H Respiratory Rate 22 16 Blood Pressure 107/60 108/62 Pulse Oximetry 95 97 Oxygen Flow Rate 0 0 Oxygen Delivery Method Room Air Oxygen Flow Rate 0 Narrative Exam Narrative: Left hip dressings are clean, dry, and intact. Distal motor and sensory exams are intact. Objective Labs 01/28/25 05:03 01/28/25 05:03 [facility] Medical History Chronic kidney disease (CKD) Coronary artery disease Essential hypertension Mixed hyperlipidemia Social History details: Lives alone at [facility], daughter lives on [facility] household members: none Smoking Status: Former smoker Assessment & Plan Assessment & Plan narrative: Postop day 2. From left hip hemiarthroplasty for femoral neck fracture, progressing as anticipated. DVT prophylaxis per primary team recommend appropriate outpatient treatment when discharge. Weightbearing as tolerated on left lower extremity. Continue to work with physical therapy. Continue with disposition planning. Follow up in 7-10 days with [facility]. Time-Based Coding :: [TOTAL MINUTES] spent with patient and on the chart (including review of chart, obtaining history, exam, reviewing outside data, placing orders, documenting exam and treatment plan, and counseling patient) on [DATE]. PROFEE Business Education Instructor Document charge(s): Yes Charge Codes Subsequent inpatient/observation care: [id number]
--- NOTE | 2025-01-29 11:19 | PM.DS.1 ---
History of Present Illness History of Present Illness Chief complaint: GLF Left Hip Narrative: From H&P: 89-year-old man under the primary care of DOMINGO Puga and cardiology care of Dr. Fritz Nava was picking a pill up off the floor of his apartment yesterday when he fell on the floor and experienced immediate hip pain. He was seen in the ER and diagnosed with a left intertrochanteric hip fracture and underwent operative repair this morning. He states a history of coronary disease s/p stenting and atrial fibrillation s/p Watchman device, as well as chronic kidney disease followed by nephrology. He is seen postoperatively denying chest pain, shortness for breath or recent cardiac symptoms. Discharge Providers Provider Date of admission: 01/26/25 17:37 Discharge Date: 01/29/25 Consults: 01/26/25 20:53 Consult to Occupational Therapy Evaluate & Treat Comment: Physician Instructions: Evaluate and treat Consult to Physical Therapy Evaluate & Treat Comment: Physician Instructions: Evaluate and Treat 01/27/25 11:29 Consult to Hospitalist Service Routine Comment: Consulting Provider: Alfredito Moore V Reason for consultation: Admission and medical management Has provider been notified: Yes 01/27/25 11:32 Consult to Discharge Planning Routine Comment: Consult to Occupational Therapy Evaluate & Treat Comment: Physician Instructions: Evaluate and treat Consult to Physical Therapy Evaluate & Treat Comment: Physician Instructions: Evaluate and Treat Discharge provider: Nigel Dang MD Summary Hospital Course Discharge Diagnosis: 1. Ground level fall with left intertrochanteric hip fracture, likely pathologic due to underlying osteoporosis , status post left hemiarthroplasty 01/27/2025. 2. Mild postoperative anemia due to surgical and hip fracture blood loss. 3. Coronary artery disease. Clinically stable. Asymptomatic. Borderline elevated troponin noted immediately postoperatively subsequently normalized. No evidence of non STEMI. 3. Hypertension. Hold BP meds due to low blood pressure. 4. Chronic kidney disease. 5. Orthostatic hypotension , likely volume depletion. Some element of chronic issue. Hospital Course: 01/27 consult: 89-year-old man under the primary care of DOMINGO Puga and cardiology care of Dr. Fritz Nava was picking a pill up off the floor of his apartment yesterday when he fell on the floor and experienced immediate hip pain. He was seen in the ER and diagnosed with a left intertrochanteric hip fracture and underwent operative repair this morning. He states a history of coronary disease s/p stenting and atrial fibrillation s/p Watchman device, as well as chronic kidney disease followed by nephrology. He is seen postoperatively denying chest pain, shortness for breath or recent cardiac symptoms. 01/28: The patient is noted to be orthostatic this morning with blood pressure falling from 116 systolic to 85 with standing and feeling mildly lightheaded. Physical therapy is put on hold. He denies chest pain or shortness of breath. He states he is feeling better today. 01/29: stable for discharge, some orthostasis. Status at Discharge Cognitive/behavioral status at discharge: oriented Functional status at discharge: uses cane/walker Overall status at discharge: patient is progressing back to baseline Time Spent with Patient Time spent: Greater than 30 minutes Exam Vital Signs (past 8 hours): - 01/29/25 04:00 01/29/25 08:00 Temperature 97.1 F L 97 F L Pulse Rate 93 H 95 H Respiratory Rate 22 16 Blood Pressure 107/60 108/62 Pulse Oximetry 95 97 Oxygen Flow Rate 0 0 Oxygen Delivery Method Room Air Oxygen Flow Rate 0 Narrative Exam Narrative: NAD, alert and oriented. Fluent speech. Lungs are clear, normal rate and effort. Heart is regular, no murmur gallop or rub. Abdomen is soft, non distended. Extremities are free of edema. Objective Imaging Multiple studies:: Radiologist's impression: Pelvis xray 01/26/2025: Finding is concerning for acute displaced left femoral neck fracture. Please correlate with CT of pelvis findings from the same day. Pelvis CT 01/26/2025: Comminuted moderately displaced and angulated left subcapital hip fracture. Hip xray 01/27/2025: Expected post-operative appearance of a hip arthroplasty. Labs 01/28/25 05:03 01/28/25 05:03 [facility] Medical History Chronic kidney disease (CKD) Mixed hyperlipidemia Essential hypertension Coronary artery disease Social History details: Lives alone at [facility], daughter lives on [facility] household members: none Smoking Status: Former smoker Discharge Assessment & Plan Assessment and Plan Assessment: 1. Hip fracture S/P hemiarthroplasty. Plan of Treatment: Stable for discharge to [facility] nursing [facility] for rehabilitative efforts. ASA b.i.d. for prophylaxis of DVT. [N], the patient has documentation of a left ventricle ejection fracture less than or equal to 40%, or moderately or severely reduced left ventricle systolic function. [N], the patient has a history of heart transplant or left ventricular assist device (LVAD). [N], the patient was prescribed an ARNOLD inhibitor at discharge or is already being taken. The patient was not prescribed an ARNOLD-inhibitor because of the following exception: NA. [N], the patient was prescribed Metoprolol succinate, bisoprolol, or carvedilol at discharge. The patient was not prescribed Metoprolol succinate, bisoprolol, or carvedilol at discharge because of the following exception: NA Discharge Plan Discharge Plan Patient Disposition: SNF Transfer to: [facility] Under care of provider: SNF Provider. Provider Discharge Comment: [facility]. Discharge orders & Medications Prescriptions: New aspirin 81 mg tablet 81 mg PO BID Qty: 60 0RF Continued torsemide 20 mg tablet 20 mg PO BID spironolactone 25 mg tablet 25 mg PO DAILY lisinopril 5 mg tablet 5 mg PO DAILY metoprolol succinate 25 mg tablet extended release 24 hr 25 mg PO DAILY potassium chloride 10 mEq tablet,ER particles/crystals 10 meq PO DAILY cinacalcet 30 mg tablet 30 mg PO DAILY hydrocodone-acetaminophen 5-325 mg tablet 1 tab PO Q6H PRN (Reason: pain) Qty: 15 0RF Diet/Activity/Treatments Diet: Regular Special Rehabilitation Services Reason for rehabilitation: Post-operative therapy Rehab type: Physical therapy and Occupational therapy Visit Report/Discharge Packet Instructions: DI for Hip Replacement, DI for Prescription Opioid Use Stand Alone Forms: Patient Portal/API
--- NOTE | 2025-01-29 11:46 | CM.DPC ---
DCP Discharge SNF Per MD, pt medically stable to d/c to SNF today for ongoing PT/OT after hip surgery and completed orders and no identified barrier to discharge. SIS confirmed that [facility] can still accept pt today with transport around 1330. SIS secure emailed PASRR, signed med list, scripts, dc summary, and orders to [facility] to review. SIS met bedside with pt and explained role and updated on discharge plan above and pt confirms he remains agreeable to d/c to [facility] today and states he will call and update his Dtr as she is at work and won't be off work until around 1900 as she works in [employer] at a mitering machine operator office. Updated video tape transferrer, MACHINERY DISMANTLER, and RN and provided number to call report. ARASELI Diaz
[2025-01-29 12:00] VITALS: BP 190/67; PULSE 102; RESP 13; TEMP 36.1; O2SAT 97
--- NOTE | 2025-01-29 14:04 | PC.NURSE ---
Patient is A&OX4, VSS, afebrile on RA. PT attempts to work with patient this a.m. and found his SBP to drop to 80's upon standing. He is able to sit in the chair all morning and denies dizziness. He is able to use the urinal and stand with assistance w/o dizziness. A.M B.P medications held, and per patient request stool softener held as well for c/o soft stool yesterday. He is cleared for d/c to [facility] and he is agreeable with the discharge plan. He is unsteady on his feet and able to transfer short distance from bed to W/ with assistance. He reports pain manageable at 1/10 and only hurts when I move. He declines need for PRN pain medications this shift. Report given to Aissatou at [facility] and he is transported via w/ at approximately 1342 with all of his personal belongings with facility designee.
== END 2025-01-29 13:42 | DRG 522 ==
LOC: ED 13:46 → AC 17:38
PROVIDERS: Internal Medicine; Admitting Provider Orthopaedic Surgery; Emergency Provider Family Medicine; Referring Provider Family Medicine; Visit Provider Orthopaedic Surgery
PROC: 0SRS0JZ Replacement of Left Hip Joint, Femoral Surface with Synthetic Substitute, Open Approach (ICD-10-PCS; CPT 27125; principal; 2025-01-27 09:00)
DX: M80.052A Age-related osteoporosis with current pathological fracture, left femur, initial encounter for fracture (principal); I25.10 Atherosclerotic heart disease of native coronary artery without angina pectoris; I48.91 Unspecified atrial fibrillation; I12.9 Hypertensive chronic kidney disease with stage 1 through stage 4 chronic kidney disease, or unspecified chronic kidney disease; N18.9 Chronic kidney disease, unspecified; I95.1 Orthostatic hypotension; E86.9 Volume depletion, unspecified; Z87.891 Personal history of nicotine dependence; Z95.818 Presence of other cardiac implants and grafts; Z95.5 Presence of coronary angioplasty implant and graft
CPT/HCPCS: 27236; 36415; 72170; 72192; 73502; 74018; 80048; 80053; 84484; 85025; 93005; 96374; 96376; 97162; 97165; 97530; 99233; 99284; C1776; C1713; J0131; J0330; J0666; J0689; J1100; J1650; J2270; J2272; J2405; J2704; J3010; J3490; J7050

== ENCOUNTER → 2025-01-30 14:38 | Outpatient (CLI) | payer MEDICARE, BC, SELFPAY ==
[2025-01-27 13:00] VITALS: BMI 32.0
--- NOTE | 2025-01-30 14:42 | DI.RAD.S_ITS ---
PROCEDURE: XR CHEST 2V INDICATIONS: ABNORMAL SPUTUM/WHEEZING TECHNIQUE: 2 views of the chest were acquired. COMPARISON: [facility], , XR CHEST 1V, 06/17/2023, 5:59. FINDINGS: Surgical changes and devices: None. Lungs and pleura: Mild patchy right middle lung zone perihilar infiltrate. No pleural effusions or pneumothorax. Mediastinum: Mediastinal contours are normal. Cardiomegaly. Bones and chest wall: No suspicious bony abnormalities. Soft tissues appear unremarkable. IMPRESSION: Mild patchy right middle lung zone perihilar infiltrate and cardiomegaly. Dictated by: Jas Ford M.D. on 01/31/2025 at 3:59 Approved by: Jas Ford M.D. on 01/31/2025 at 4:02
== END ==
LOC: RAD 14:41
PROVIDERS: Referring Provider Registered Nurse; Visit Provider Registered Nurse
DX: I51.7 Cardiomegaly (principal); R06.2 Wheezing; R09.3 Abnormal sputum; R91.8 Other nonspecific abnormal finding of lung field
CPT/HCPCS: 71046

== ENCOUNTER 2025-01-31 07:40 | Emergency (ER) | payer MEDICARE, BC, SELFPAY ==
[2025-01-27 13:00] VITALS: BMI 32.0
[2025-01-31] VITALS (9 sets, daily range): BP systolic 98–246; BP diastolic 55–139; PULSE 0–156; RESP 19–24; TEMP 30–36.9; O2SAT 81–87; BMI 28.5
--- NOTE | 2025-01-31 07:46 | EKG_ITS ---
[id number], [place] [address] Test Date: 2025-01-31 Pat Name: Henri Weaver Department: Room: Gender: Male Photogrammetric Technician: LUIS : 1935 Requested By: Order Number: [id number] Reading MD: Gaurang Whittington MD Measurements Intervals Dickens Rate: 99 P: ME: QRS: 69 QRSD: 104 T: -8 QT: 342 QTc: 438 Interpretive Statements Atrial fibrillation Incomplete right bundle branch block (old) Possible Right ventricular hypertrophy Nonspecific ST and T wave abnormality Electronically Signed On 02-05-2025 7:41:42 PDT by Gaurang Whittington MD
--- NOTE | 2025-01-31 07:48 | ED.SOB ---
HPI - SOB/Dyspnea General Chief Complaint: Shortness of Breath/Dyspnea Stated Complaint: respiratory distress Time Seen by Provider: 01/31/25 07:46 Source: EMS Mode of arrival: EMS History of Present Illness HPI Narrative: 89-year-old male history of coronary artery disease status post stenting, atrial fibrillation status post Watchman device, CKD follow up by Nephrology, hypertension, CHF who had left intertrochanteric hip fracture had operative repair and discharged from here on 01/29/2025 to custodial. Patient presents with difficulty breathing EMS notes he described as feeling very tired. They note he was hypoxic in the mid 80s with a increased work of breathing received a albuterol and Atrovent, nitro sublingual as he was hypertensive potential CHF and placed on CPAP. Verbal reports of code status of DNR but no paperwork available. Related Data Home Medications ?Medication ?Instructions ?Recorded ?Confirmed cinacalcet 30 mg tablet 30 mg PO DAILY 01/27/25 01/27/25 lisinopril 5 mg tablet 5 mg PO DAILY 01/27/25 01/27/25 metoprolol succinate 25 mg 25 mg PO DAILY 01/27/25 01/27/25 tablet,extended release 24 hr potassium chloride 10 mEq 10 meq PO DAILY 01/27/25 01/27/25 tablet,extended release(part/cryst) spironolactone 25 mg tablet 25 mg PO DAILY 01/27/25 01/27/25 torsemide 20 mg tablet 20 mg PO BID 01/27/25 01/27/25 Previous Rx's ?Medication ?Instructions ?Recorded aspirin 81 mg tablet 81 mg PO BID #60 tabs 01/29/25 hydrocodone 5 mg-acetaminophen 325 1 tab PO Q6H PRN pain #15 tabs 01/29/25 mg tablet Allergies Allergy/AdvReac Type Severity Reaction Status Date / Time No Known Drug Allergies Allergy Verified 01/31/25 07:45 Review of Systems Review of Systems ROS Unobtainable: All systems reviewed & are unremarkable except as noted in HPI and below Patient History Medical History Chronic kidney disease (CKD) Mixed hyperlipidemia Essential hypertension Coronary artery disease Social History details: Lives alone at [facility], daughter lives on [place] household members: none tobacco type: cigarettes Exam Narrative Exam Narrative: GEN: Chronically ill-appearing male, alert and oriented to self only, patient appears to be in severe distress. Pale. HEENT: Atraumatic, pupils are equal round reactive to light, extraocular movements are intact, nares are clear, there is no conjunctival pallor. Throat is clear without any exudates, erythema, tonsillar enlargement or uvular deviation HEART: Irregularly irregular slightly tachycardic rate and rhythm without murmur, clicks, rubs. No carotid bruits, pulses are equal in upper and lower extremities. No edema bilateral lower extremity. LUNGS:Lungs coarse bilaterally, tachypnea, no wheezes, rales, crackles, chest moves symmetrically, 2-3 word. ABD:bowel sounds normal, soft, non-tender, no guarding, rebound, rigidity, no masses noted, no hepatosplenomegaly :No CVA tenderness MSCL: Non-tender, full range of motion NEURO:CN 2-12 intact, sensation normal. Initial Vital Signs Initial Vital Signs: Vital Signs Temperature 98.4 F 01/31/25 07:44 Pulse Rate 98 H 01/31/25 07:44 Respiratory Rate 24 01/31/25 07:44 Blood Pressure 98/55 L 01/31/25 07:44 Pulse Oximetry 87 L 01/31/25 07:44 Oxygen Delivery Method BiPAP 01/31/25 07:44 Procedures Intubation sedative: Etomidate Mg Given: 10 paralytic: Succinylcholine Mg Given: 150 Laryngoscope: fiber optic video scope (glidoscope) ET Tube Size: 7.5 ET Tube Uncuffed: Yes Tube Secured Depth (cm): 24 Tube Secured Location: teeth Tube Placement Confirmation: Visualized tube passing through cords, Equal breath sounds bilaterally, No breath sounds over epigastrium and Confirmation by capnometry Intubation Complications: other (patient had emesis, suctioned and able to visualize, patient shortly after bradycardiac and had cardiac arrest.) Course Orders Ordered: ED Orders 01/31/25 07:46 Covid-19 + FLU A/B + RSV - PCR Stat Arterial Blood Gas STAT BiPAP Ventilatory Support RT PROTOCOL EKG-12 Lead Stat RT Consult Eval and Treat NOW Discontinued Medications Atropine Sulfate (Atropine 1 Mg/10 Ml Syringe) 1 mg IV NOW ONE Stop: 01/31/25 08:06 Last Admin: 01/31/25 08:00 Dose: 1 mg Documented By: MACO Etomidate (Etomidate 2 Mg/Ml 10 Ml Vial) 50 mg IV NOW ONE Stop: 01/31/25 07:59 Last Admin: 01/31/25 09:13 Dose: Not Given Documented By: MACO Etomidate (Etomidate 2 Mg/Ml 10 Ml Vial) 10 mg IV NOW ONE Stop: 01/31/25 08:02 Last Admin: 01/31/25 08:00 Dose: 10 mg Documented By: MACO Methylprednisolone (Methylprednisolone Succ 125 Mg/2 Ml Vial) 125 mg IV NOW ONE Stop: 01/31/25 07:48 Last Admin: 01/31/25 09:11 Dose: Not Given Documented By: MACO Succinylcholine Chloride (Succinylcholine 200 Mg/10 Ml Vial) 150 mg IV NOW ONE Stop: 01/31/25 08:01 Last Admin: 01/31/25 08:00 Dose: 150 mg Documented By: MACO Vital Signs Vital signs: Vital Signs - 8 hr 01/31/25 07:44 01/31/25 07:50 01/31/25 07:59 Temperature 98.4 F Pulse Rate 98 H 104 H Respiratory Rate 24 22 Blood Pressure 98/55 L Pulse Oximetry 87 L 83 L Oxygen Delivery Method BiPAP Fraction of Inspired Oxygen 40 01/31/25 08:00 01/31/25 08:01 01/31/25 08:01 Temperature Pulse Rate 100 H 100 H Respiratory Rate 21 19 Blood Pressure 119/71 Pulse Oximetry 83 L 81 L Oxygen Delivery Method Fraction of Inspired Oxygen 01/31/25 08:10 01/31/25 08:10 01/31/25 08:16 Temperature Pulse Rate 0 L Respiratory Rate Blood Pressure 123/82 219/97 H Pulse Oximetry Oxygen Delivery Method Fraction of Inspired Oxygen 01/31/25 08:16 01/31/25 08:18 01/31/25 08:18 Temperature Pulse Rate 143 H 156 H Respiratory Rate Blood Pressure 246/139 H Pulse Oximetry Oxygen Delivery Method Fraction of Inspired Oxygen 01/31/25 08:20 Temperature Pulse Rate 90 Respiratory Rate Blood Pressure Pulse Oximetry Oxygen Delivery Method Fraction of Inspired Oxygen MDM - SOB/Dyspnea ECG Data Attestation: I personally reviewed and interpreted this ECG as follows: Interpretation: Atrial fibrillation rate of 99 QRS of 104 QTC of 438, no acute ST elevation depression noted. Patient has prior had more depression in V2-6 on prior EKG less prominent today. MDM Narrative Medical decision making narrative: Patient is altered upon arrival, discussed code status there is report that patient maybe DNR but no paperwork immediately available. When patient was asked as I do not know. On CPAP on arrival, switched over to bipap and felt patient likely needs intubation. Reaching out to daughter to verify code status as reported DNR. 01/31/25 0754: Call to patients daughter listed as emergency contact, Telma Armenta. Spoke with her she states it is patient has a reversible cause she believes the patient would be willing I to have CPR, does not want any assistant terminal manager vegatative state. Patient having significant difficulty with breathing and mentation is altered decision was made to intubate. Patient's blood pressure labile. During intubation patient had immediate output of black coffee-ground liquid emesis. This was suction but caused some delay in ET tube placement patient Jacques down. ET tube was placed under direct visualization still had pulse but heart rate was in the 30s received a dose of atropine. Continued to Jacques down and CPR was initiated when pulses were lost. Patient had epinephrine x2, bicarb was PE on multiple rhythm checks. During CPR was relayed that data was found that patient was DNR on 01/27/[address] Moore. bedside US shows no cardiac activity at next pulse check and decision to stop. TOD 0820. 01/31/25 0837: Spoke with daughter. Updated her on cardiac arrest and unsuccessful CPR. She is currently headed to the hospital. Daughter arrived in department, all questions answered. Oil Distributor Tender contacted by nursing, not a job forwarder case. GOL contacted. PCP listed is local hospitalist. Critical Care Time Critical Care Time Critical Care Time: Yes Total Critical Care Time: 20 Attestation: The high probability of a clinically significant, sudden or life threatening deterioration of the cardiac and pulmonary system(s) required my full and direct attention, intervention and personal management. The aggregate critical care time was [--] minutes. This time is in addition to time spent performing reported procedures but includes the following: [x] Data Review and interpretation [x] Patient assessment and monitoring of vital signs [x] Documentation [x] Medication orders and management Discharge Plan Departure Patient Disposition: Clinical Impression: Respiratory failure, Cardiac arrest
[2025-01-31] MEDS: SUCCINYLCHOLINE 200 MG/10 ML VIAL 150 MG IV (08:00)
[2025-01-31] MEDS: ATROPINE 1 MG/10 ML SYRINGE IV (08:00)
[2025-01-31] MEDS: ETOMIDATE 2 MG/ML 10 ML VIAL 10 MG IV (08:00)
--- NOTE | 2025-01-31 08:47 | PC.NURSE ---
Pt arrived to ED from [facility] for respiratory distress on c-pap. Dr Smith & RT at bedside during triage. O2 sat 80s on RA, diaphoretic and skin cool, pale and clammy. Pt unable to answer questions or track appropriately. Pt placed on bipap and unable to maintain o2 sat above 87%. Pt prepped for RSI. 10mg Etomidate & 150mg succinylcholine pushed and pt successfully intubated. HR shahla down to 30s and then to asystole. CPR started and code called. 2 rounds of ACLS protocol & CPR performed.
--- NOTE | 2025-01-31 09:16 | PC.NURSE ---
10mg Etomidate and 50mg Succinylcholine disposed of in cactus. Spoke with Zuleyka in pharmacy regarding appropriate waste.
== END 2025-01-31 10:55 | disposition expired ==
PROVIDERS: Emergency Provider Emergency Medicine
DX: I46.9 Cardiac arrest, cause unspecified (principal); J96.00 Acute respiratory failure, unspecified whether with hypoxia or hypercapnia
CPT/HCPCS: 31500; 92950; 93005; 94660; 94799; 96374; 96375; 99284; 99285; J0165; J0330; J0461